=== PATIENT | male | born 1940 | race Two or more races ===

== ENCOUNTER 2017-03-06 14:41 | Inpatient (IN) | payer MEDICARE, OTHER ==
[~2017-03-06] VITALS: Ht 170.2 cm; Wt 84.5 kg
[~2017-03-06 14:41] MED LIST: ACET500C26 PO; ASP81EC PO; Furosemide PO; Gabapentin PO; HYDR50TA15; LISI40TA PO; LOPE-27 PO; MONT10TA34 PO; OYST500T48 OR; POTA10TA51 PO; SERT-138 PO; SIMV-8 PO; SITA100T7 PO
[2017-03-06] MEDS ORDERED: ASPirin 81 mg TAB PO ONE (15:00)
[2017-03-06] MEDS ORDERED: ONDANSETRON HCL 4 MG/2 ML VIAL IV ONE (15:00)
[2017-03-06] MEDS ORDERED: MORPHINE SULF INJ 2 MG/ML SYRINGE 1ML IV PRN ×3 (15:00→18:30)
[2017-03-06 15:18] LABS: Basophils # (auto) 0 uL; Basophils % (auto) 0.3 % (0.0-2.0); Eosinophils # (auto) 0 uL; Eosinophils % (auto) 0.5 % (0.0-7.0); Hematocrit 40.2 % (41.0-53.0); Hemoglobin 13.2 g/dL (13.5-17.5); Lymphocytes # (auto) 0.7 uL; Lymphocytes % (auto) 8.1 % (10.0-50.0); Mean Corpuscular Hemoglobin 30.7 pg (28.0-32.0); Mean Corpuscular Hgb Conc. 32.8 g/dL (32.0-36.0); Mean Corpuscular Volume 93.5 fL (80.0-100.0); Mean Platelet Volume 8.7 fL (6.9-10.8); Monocytes # (auto) 0.2 uL; Monocytes % (auto) 2.8 % (0.0-12.0); Neutrophils # (auto) 7.3 uL; Neutrophils % (auto) 88.3 % (37.0-80.0); Platelet Count (auto) 218 10^3/uL (140-450); Red Cell Distribution Width 13.8 % (11.8-14.3); White Blood Cell 8.3 10^3/uL (4.4-10.8)
[2017-03-06 15:37] LABS: INR 1.05 (0.9-1.15); Partial Thromboplastin Time 26.5 sec (22.64-33.71); Prothrombin Time 11.4 sec (9.37-12.3)
[2017-03-06 15:45] LABS: Albumin 3.8 g/dL (3.4-5.0); Alkaline Phosphatase 114 U/L (45-117); Anion Gap 9 (5-15); Aspartate Aminotransferase 11 U/L (15-37); BUN/Creatinine Ratio 15.1; Bilirubin, Total 0.5 mg/dL (0.2-1.0); Blood Urea Nitrogen 14 mg/dL (7-18); Calcium 9.5 mg/dL (8.5-10.1); Carbon Dioxide 27 mmol/L (21-32); Chloride 107 mmol/L (98-107); GFR African American 102 mL/min; GFR Non-African American 84 mL/min; Glucose 181 mg/dL (74-106); Potassium 3.9 mmol/L (3.5-5.1); Sodium 143 mmol/L (136-145); Total Protein 8.1 g/dL (6.4-8.2)
[2017-03-06 15:46] LABS: B-Type Natriuretic Peptide 302.69 pg/mL (0-100)
[2017-03-06 15:48] LABS: Temperature: 22.8 C (20.0-25.0)
[2017-03-06] MEDS ORDERED: GABA-339 PO (15:48)
[2017-03-06] MEDS ORDERED: CLON0.1T14 PO (15:48)
[2017-03-06] MEDS ORDERED: OXY5T PO (15:48)
[2017-03-06] MEDS ORDERED: PRO10T PO (15:48)
[2017-03-06] MEDS ORDERED: DONE10TA17 PO (15:48)
[2017-03-06] MEDS ORDERED: TAM04C PO (15:49)
[2017-03-06] MEDS ORDERED: OMEP20CA74 PO (15:50)
[2017-03-06] MEDS ORDERED: METO-158 PO (15:50)
[2017-03-06] MEDS ORDERED: PROMETHAZINE HCL 25 MG/ML 1ML ONE (16:06)
[2017-03-06] MEDS ORDERED: PROMETHAZINE HCL 25 MG/ML 1ML IV ONE (16:15)
[2017-03-06 17:04] LABS: Urine Bilirubin Negative (Negative); Urine Blood Negative /uL (Negative); Urine Color Yellow (Yellow); Urine Glucose Normal (Normal); Urine Ketone TRACE (Negative); Urine Mucus FEW (None Seen); Urine Nitrite Negative (Negative); Urine RBC 1 /hpf (0 - 3); Urine Squamous Epithelial Cell FEW /hpf (<5); Urine pH 7.5 (5.0-8.0)
[2017-03-06] MEDS ORDERED: FUROSEMIDE 40 MG/4 ML VIAL IV ONE (17:15)
[2017-03-06] MEDS ORDERED: SODIUM CHLORIDE 0.9% 1,000 ML IV SCH (18:20)
[2017-03-06] MEDS ORDERED: cloNIDine HCL 0.1 MG TAB PO PRN (18:30)
[2017-03-06] MEDS ORDERED: ONDANSETRON HCL 4 MG/2 ML VIAL IV PRN (18:30)
[2017-03-06] MEDS ORDERED: NITROGLYCERIN 0.4 MG SL TAB SL PRN (18:30)
[2017-03-06] MEDS ORDERED: DEXTROSE (50%) 50ML SYRG IV PRN (18:30)
[2017-03-06] MEDS ORDERED: LOPERAMIDE HCL 2 MG CAP PO PRN (18:30)
[2017-03-06] MEDS ORDERED: TEMAZEPAM 15 MG CAP PO PRN (18:30)
[2017-03-06] MEDS ORDERED: ACETAMINOPHEN 325 MG TAB PO PRN (18:30)
[2017-03-06] MEDS ORDERED: DOCUSATE SOD 100 MG CAP PO PRN (18:30)
[2017-03-06] MEDS ORDERED: cefTRIAXone 1GM/50ML D5W 50 ML IV ONE (18:30)
[2017-03-06] MEDS ORDERED: oxyCODONE ER 10 MG TAB PO PRN (18:45)
[2017-03-06 20:30] VITALS: BP 176/111
[2017-03-06] MEDS: HYDROcodone-ACET 5/325MG TAB PO PRN (20:44)
[2017-03-06 22:00] VITALS: BP 122/61
[2017-03-06] MEDS ORDERED: MONTELUKAST SODIUM 10 MG TAB PO SCH (22:00)
[2017-03-06] MEDS: ACCU-CHEK COMFORT CURVE STRIP VI SCH (22:00)
[2017-03-06] MEDS ORDERED: ATORVASTATIN 20 MG TAB PO SCH (22:00)
[2017-03-06] MEDS ORDERED: DONEPEZIL HYDROCHLORIDE 5 MG TAB PO SCH (22:00)
[2017-03-06] MEDS ORDERED: SERTRALINE HCL 50 MG TAB PO SCH (22:00)
[2017-03-06] MEDS: InsuLIN REG 1unit/0.01ml Soln (100units/ml) SC SCH (22:43)
[2017-03-06] MEDS: GABAPENTIN 300 MG CAP PO SCH (22:44)
[2017-03-06] MEDS: CALCIUM CARB 500 MG CHEW TAB PO SCH (22:44)
[2017-03-06] MEDS: ALLOPURINOL 100 MG TAB PO SCH (22:45)
[2017-03-06] MEDS: FAMOTIDINE 20 MG TAB PO SCH (22:46)
[2017-03-06] MEDS: METOPROLOL TARTRATE 25 MG TAB PO SCH (22:47)
[2017-03-07 05:00] VITALS: BP 130/58
[2017-03-07 06:09] LABS: Basophils # (auto) 0 uL; Basophils % (auto) 0.2 % (0.0-2.0); Eosinophils # (auto) 0 uL; Hematocrit 37.3 % (41.0-53.0); Hemoglobin 12.4 g/dL (13.5-17.5); Lymphocytes # (auto) 1.4 uL; Mean Corpuscular Hemoglobin 30.8 pg (28.0-32.0); Mean Corpuscular Hgb Conc. 33.1 g/dL (32.0-36.0); Mean Corpuscular Volume 92.9 fL (80.0-100.0); Mean Platelet Volume 8.7 fL (6.9-10.8); Monocytes # (auto) 0.9 uL; Monocytes % (auto) 9.6 % (0.0-12.0); Neutrophils # (auto) 7.4 uL; Neutrophils % (auto) 76.2 % (37.0-80.0); Nucleated Red Blood Cells % 0.1 %; Platelet Count (auto) 205 10^3/uL (140-450); Red Cell Distribution Width 14.2 % (11.8-14.3); White Blood Cell 9.7 10^3/uL (4.4-10.8)
[2017-03-07 06:43] LABS: Albumin 3.5 g/dL (3.4-5.0); BUN/Creatinine Ratio 15.9; Bilirubin, Total 0.5 mg/dL (0.2-1.0); Calcium 9.2 mg/dL (8.5-10.1); Potassium 3.4 mmol/L (3.5-5.1); Total Protein 7.5 g/dL (6.4-8.2)
[2017-03-07] MEDS: GABAPENTIN 300 MG CAP PO SCH ×2 (06:47→14:00)
[2017-03-07] MEDS: ACCU-CHEK COMFORT CURVE STRIP VI SCH ×2 (06:48→11:32)
[2017-03-07] MEDS: InsuLIN REG 1unit/0.01ml Soln (100units/ml) SC SCH ×2 (06:48→11:30)
[2017-03-07] MEDS: HYDROcodone-ACET 5/325MG TAB PO PRN (06:58)
[2017-03-07 08:00] VITALS: BP 151/71
[2017-03-07 09:00] VITALS: BP 151/71
[2017-03-07] MEDS ORDERED: cefTRIAXone 1GM/50ML D5W 50 ML IV SCH (09:00)
[2017-03-07] MEDS ORDERED: PNEUMOCOCCAL VACC POLYS 25 MCG/0.5 ML VIAL IM ONE (10:00)
[2017-03-07] MEDS ORDERED: ASPirin-EC 81 mg tab PO SCH (10:00)
[2017-03-07] MEDS ORDERED: FUROSEMIDE 40 MG TAB PO SCH (10:00)
[2017-03-07] MEDS ORDERED: NITROGLYCERIN 0.4 MG SL TAB SL ONE (10:00)
[2017-03-07] MEDS ORDERED: JANUVIA 25 MG PO SCH (10:00)
[2017-03-07] MEDS ORDERED: LISINOPRIL 20 MG TAB PO SCH (10:00)
[2017-03-07] MEDS ORDERED: MULTIPLE VITAMIN TAB PO SCH (10:00)
[2017-03-07] MEDS ORDERED: POTASSIUM CHL 10 Meq TABLET PO SCH (10:00)
[2017-03-07] MEDS ORDERED: PNEUMOCOCCAL VACC POLYS 25 MCG/0.5 ML VIAL IM SCH (10:00)
[2017-03-07] MEDS ORDERED: PANTOPRAZOLE 40 MG TAB PO SCH (10:00)
[2017-03-07] MEDS: METOPROLOL TARTRATE 25 MG TAB PO SCH (10:20)
[2017-03-07] MEDS: FAMOTIDINE 20 MG TAB PO SCH (10:32)
[2017-03-07] MEDS: CALCIUM CARB 500 MG CHEW TAB PO SCH (10:33)
[2017-03-07] MEDS: ALLOPURINOL 100 MG TAB PO SCH (10:34)
[2017-03-07] MEDS ORDERED: LEVO500T21 PO (11:33)
[2017-03-07] MEDS ORDERED: ALBUAER3 IN (11:33)
[2017-03-07 13:00] VITALS: BP 149/57
[2017-03-07] MEDS ORDERED: TAMSULOSIN HYDROCHLORIDE 0.4 MG CAP PO SCH (18:00)
[2017-03-07] MEDS ORDERED: DOXYCYCLINE 100 MG TAB/CAP PO SCH (22:00)
== END 2017-03-07 17:10 | disposition home health service (06) | DRG 202 ==
LOC: ER 14:41 → EDBD 14:41 → TELE 14:42 → TELE-CENTR 20:25
PROVIDERS: ADMIT Internal Medicine; ATTEND Internal Medicine
DX: J20.9 Acute bronchitis, unspecified (principal); I42.9 Cardiomyopathy, unspecified; E11.21 Type 2 diabetes mellitus with diabetic nephropathy; I48.0 Paroxysmal atrial fibrillation; E11.22 Type 2 diabetes mellitus with diabetic chronic kidney disease; I48.92 Unspecified atrial flutter; I50.42 Chronic combined systolic (congestive) and diastolic (congestive) heart failure; I13.0 Hypertensive heart and chronic kidney disease with heart failure and stage 1 through stage 4 chronic kidney disease, or unspecified chronic kidney disease; J44.0 Chronic obstructive pulmonary disease with (acute) lower respiratory infection; J45.901 Unspecified asthma with (acute) exacerbation; N40.0 Benign prostatic hyperplasia without lower urinary tract symptoms; D63.8 Anemia in other chronic diseases classified elsewhere; E78.5 Hyperlipidemia, unspecified; F32.9 Major depressive disorder, single episode, unspecified; I70.0 Atherosclerosis of aorta; K21.9 Gastro-esophageal reflux disease without esophagitis; M48.061 Spinal stenosis, lumbar region without neurogenic claudication; N18.2 Chronic kidney disease, stage 2 (mild); Z83.3 Family history of diabetes mellitus; Z86.73 Personal history of transient ischemic attack (TIA), and cerebral infarction without residual deficits; Z79.899 Other long term (current) drug therapy; Z95.810 Presence of automatic (implantable) cardiac defibrillator; Z23 Encounter for immunization
CPT/HCPCS: 36415; 71010; 74176; 80053; 81001; 82962; 83036; 83880; 84443; 84484; 85025; 85610; 85730; 87086; 87088; 87186; 96361; 96365; 96375; J0696; J1815; J2405

== ENCOUNTER 2017-07-04 16:52 | Inpatient (IN) | payer MEDICARE, OTHER ==
[~2017-07-04] VITALS: Ht 167.6 cm; Wt 58.4 kg
[~2017-07-04 16:52] MED LIST changes: -ACET500C26 PO; +ALBUAER3 IN; +BACL20TA; +CLON0.1T PO; +CLON0.1T14 PO; +DILT240C10; +DONE10TA17 PO; +FURO20TA3; +GABA-339 PO; -Gabapentin PO; +HYDR-2598; +LEVO500T21 PO; +METO-158; +METO-158 PO; +OMEP20CA74 PO; +OMEP20TA44; +OXY5T PO; +PRO10T PO; +SERT-274; +SIMV10TA84; +SPIR50TA23; +TAM04C PO; +TAMS0.4C36
[2017-07-04] MEDS ORDERED: hydrALAZINE HCL 20 MG/ML VL IV ONE (18:00)
[2017-07-04] MEDS ORDERED: ONDANSETRON HCL 4 MG/2 ML VIAL IV ONE (18:15)
[2017-07-04 18:31] LABS: Basophils # (auto) 0 uL; Basophils % (auto) 0.1 % (0.0-2.0); Eosinophils # (auto) 0 uL; Hematocrit 42.7 % (41.0-53.0); Hemoglobin 13.9 g/dL (13.5-17.5); Lymphocytes # (auto) 0.7 uL; Lymphocytes % (auto) 9.2 % (10.0-50.0); Mean Corpuscular Hemoglobin 29.7 pg (28.0-32.0); Mean Corpuscular Hgb Conc. 32.5 g/dL (32.0-36.0); Mean Corpuscular Volume 91.6 fL (80.0-100.0); Monocytes # (auto) 0.3 uL; Monocytes % (auto) 3.3 % (0.0-12.0); Neutrophils % (auto) 87.4 % (37.0-80.0); Nucleated Red Blood Cells % 0.1 %; Platelet Count (auto) 241 10^3/uL (140-450); Red Blood Cells 4.66 10^6/uL (4.5-5.90); Red Cell Distribution Width 14.4 % (11.8-14.3)
[2017-07-04 18:40] LABS: Alanine Aminotransferase 21 U/L (16-61); Albumin 3.9 g/dL (3.4-5.0); Anion Gap 7 (5-15); Aspartate Aminotransferase 15 U/L (15-37); BUN/Creatinine Ratio 16.2; Blood Urea Nitrogen 17 mg/dL (7-18); Calcium 9.4 mg/dL (8.5-10.1); Carbon Dioxide 25 mmol/L (21-32); Chloride 112 mmol/L (98-107); GFR African American 88 mL/min; GFR Non-African American 73 mL/min; Glucose 161 mg/dL (74-106); Potassium 3.3 mmol/L (3.5-5.1); Sodium 144 mmol/L (136-145)
[2017-07-04 18:45] LABS: Alkaline Phosphatase 105 U/L (45-117); Bilirubin, Total 0.5 mg/dL (0.2-1.0); Total Protein 7.6 g/dL (6.4-8.2)
[2017-07-04 18:46] LABS: Urine Bacteria NONE SEEN /hpf (None Seen); Urine Blood 1+ /uL (Negative); Urine Mucus FEW (None Seen); Urine Specific Gravity 1.032 (1.001-1.035); Urine WBC 2 /hpf (0 - 3)
[2017-07-04] MEDS ORDERED: MORPHINE SULFATE 4 MG/ML SYR/VIAL IV ONE (20:45)
[2017-07-04] MEDS ORDERED: ALBUTEROL SULF 2.5 MG/0.5ML(0.5%) NEB SOLN NEB PRN (21:45)
[2017-07-04] MEDS ORDERED: ACETAMINOPHEN 500 MG TAB PO PRN (21:45)
[2017-07-04] MEDS ORDERED: ONDANSETRON HCL 4 MG/2 ML VIAL IV PRN (21:45)
[2017-07-04] MEDS: cloNIDine HCL 0.1 MG TAB PO SCH (22:00)
[2017-07-04] MEDS: DONEPEZIL HYDROCHLORIDE 5 MG TAB PO SCH (22:15)
[2017-07-04] MEDS: GABAPENTIN 300 MG CAP PO SCH (22:15)
[2017-07-04] MEDS ORDERED: cloNIDine HCL 0.1 MG TAB PO ONE (22:15)
[2017-07-04 22:30] VITALS: BP 181/88
[2017-07-04] MEDS: MORPHINE SULFATE 4 MG/ML SYR/VIAL IV PRN (23:15)
[2017-07-04] MEDS ORDERED: DEXTROSE (50%) 50ML SYRG IV PRN (23:15)
[2017-07-04] MEDS ORDERED: POTASSIUM CHL 20 Meq TABLET PO ONE (23:15)
[2017-07-04] MEDS ORDERED: metroNIDAZOLE 500MG/100ML 100 ML IV ONE (23:30)
[2017-07-05] VITALS (7 sets, daily range): BP systolic 115–181; BP diastolic 52–88
[2017-07-05] MEDS: HYDROcodone-ACET 5/325MG TAB PO PRN ×2 (04:02→18:14)
[2017-07-05 05:39] LABS: Basophils # (auto) 0 uL; Basophils % (auto) 0.2 % (0.0-2.0); Eosinophils # (auto) 0 uL; Eosinophils % (auto) 0.1 % (0.0-7.0); Hematocrit 37.3 % (41.0-53.0); Hemoglobin 12.2 g/dL (13.5-17.5); Lymphocytes # (auto) 1.7 uL; Lymphocytes % (auto) 20.3 % (10.0-50.0); Mean Corpuscular Hgb Conc. 32.8 g/dL (32.0-36.0); Mean Corpuscular Volume 91.5 fL (80.0-100.0); Monocytes # (auto) 0.7 uL; Monocytes % (auto) 8.6 % (0.0-12.0); Neutrophils # (auto) 5.8 uL; Neutrophils % (auto) 70.8 % (37.0-80.0); Platelet Count (auto) 201 10^3/uL (140-450); Red Blood Cells 4.08 10^6/uL (4.5-5.90); Red Cell Distribution Width 14.8 % (11.8-14.3); White Blood Cell 8.1 10^3/uL (4.4-10.8)
[2017-07-05 05:51] LABS: BUN/Creatinine Ratio 20.4; Calcium 8.7 mg/dL (8.5-10.1); Potassium 3.5 mmol/L (3.5-5.1)
[2017-07-05] MEDS: MORPHINE SULFATE 4 MG/ML SYR/VIAL IV PRN ×2 (05:55→22:07)
[2017-07-05] MEDS: cloNIDine HCL 0.1 MG TAB PO SCH ×2 (05:58→14:00)
[2017-07-05] MEDS: ACCU-CHEK COMFORT CURVE STRIP VI SCH ×4 (05:59→21:53)
[2017-07-05] MEDS: GABAPENTIN 300 MG CAP PO SCH ×3 (05:59→21:52)
[2017-07-05] MEDS: InsuLIN REG 1unit/0.01ml Soln (100units/ml) SC SCH ×4 (06:25→21:59)
[2017-07-05] MEDS: LOSARTAN POTASSIUM 50 MG TAB PO SCH (10:07)
[2017-07-05] MEDS: DILTIAZEM HCL 120MG ER CAP PO SCH (10:08)
[2017-07-05] MEDS: ASPirin-EC 81 mg tab PO SCH (10:09)
[2017-07-05] MEDS ORDERED: TAMSULOSIN HYDROCHLORIDE 0.4 MG CAP PO SCH (18:00)
[2017-07-05] MEDS: DONEPEZIL HYDROCHLORIDE 5 MG TAB PO SCH (21:53)
[2017-07-06 05:00] VITALS: BP 128/66
[2017-07-06] MEDS: GABAPENTIN 300 MG CAP PO SCH (05:37)
[2017-07-06] MEDS: MORPHINE SULFATE 4 MG/ML SYR/VIAL IV PRN (05:37)
[2017-07-06] MEDS: ACCU-CHEK COMFORT CURVE STRIP VI SCH ×2 (05:40→11:30)
[2017-07-06] MEDS: InsuLIN REG 1unit/0.01ml Soln (100units/ml) SC SCH ×2 (05:41→11:30)
[2017-07-06 06:09] LABS: Amylase 48 U/L (25-115); Lipase 154 U/L (73-393)
[2017-07-06 08:03] VITALS: BP 170/71
[2017-07-06] MEDS: ASPirin-EC 81 mg tab PO SCH (09:16)
[2017-07-06] MEDS: LOSARTAN POTASSIUM 50 MG TAB PO SCH (09:16)
[2017-07-06] MEDS: HYDROcodone-ACET 5/325MG TAB PO PRN (09:16)
[2017-07-06] MEDS: DILTIAZEM HCL 120MG ER CAP PO SCH (09:17)
[2017-07-06 10:18] VITALS: BP 170/71
[2017-07-06 12:23] VITALS: BP 146/65
[2017-07-07] MEDS ORDERED: cloNIDine HCL 0.1 MG TAB PO SCH (22:00)
== END 2017-07-06 13:35 | disposition home or self-care (01) | DRG 392 ==
LOC: EDBD 16:52 → ER 16:52 → OVERFLOW 16:53 → WEST WING 22:37
PROVIDERS: ADMIT Nurse Practitioner Family; ATTEND Hospitalist
DX: K52.9 Noninfective gastroenteritis and colitis, unspecified (principal); E11.40 Type 2 diabetes mellitus with diabetic neuropathy, unspecified; I11.0 Hypertensive heart disease with heart failure; I50.9 Heart failure, unspecified; E78.5 Hyperlipidemia, unspecified; E87.6 Hypokalemia; K21.9 Gastro-esophageal reflux disease without esophagitis; N40.0 Benign prostatic hyperplasia without lower urinary tract symptoms; Z95.0 Presence of cardiac pacemaker; Z86.73 Personal history of transient ischemic attack (TIA), and cerebral infarction without residual deficits; Z79.899 Other long term (current) drug therapy; Z83.3 Family history of diabetes mellitus
CPT/HCPCS: 36415; 74176; 80048; 80053; 81001; 82150; 82962; 83690; 84484; 85025; 87045; 87493; 87899; 93005; 96365; 96375; J2405; J3490

== ENCOUNTER 2017-11-14 14:24 | Inpatient (IN) | payer OTHER ==
[~2017-11-14] VITALS: Ht 365.8 cm; Wt 833.2 kg
[~2017-11-14 14:24] MED LIST changes: -ALBUAER3 IN; -Furosemide PO; -HYDR50TA15; -LEVO500T21 PO; -LOPE-27 PO; -MONT10TA34 PO; -OXY5T PO; -OYST500T48 OR; -SPIR50TA23; +SPIR50TA5; -TAM04C PO
[2017-11-14] MEDS ORDERED: SODIUM CHLORIDE 0.9% 1,000 ML IV ONE (15:09)
[2017-11-14] MEDS ORDERED: MORPHINE SULF INJ 2 MG/ML SYRINGE 1ML IV ONE (15:15)
[2017-11-14] MEDS ORDERED: ONDANSETRON HCL 4 MG/2 ML VIAL IV ONE (15:15)
[2017-11-14 15:41] LABS: Urine Bacteria NONE SEEN /hpf (None Seen); Urine Blood Negative /uL (Negative); Urine Specific Gravity 1.017 (1.001-1.035); Urine WBC <1 /hpf (0 - 3)
[2017-11-14 15:54] LABS: Basophils # (auto) 0 uL; Basophils % (auto) 0.3 % (0.0-2.0); Eosinophils # (auto) 0 uL; Eosinophils % (auto) 0.4 % (0.0-7.0); Hematocrit 37.9 % (41.0-53.0); Hemoglobin 12.7 g/dL (13.5-17.5); Lymphocytes # (auto) 0.6 uL; Mean Corpuscular Hemoglobin 30.8 pg (28.0-32.0); Mean Corpuscular Hgb Conc. 33.7 g/dL (32.0-36.0); Mean Corpuscular Volume 91.4 fL (80.0-100.0); Monocytes # (auto) 0.3 uL; Monocytes % (auto) 3.9 % (0.0-12.0); Neutrophils # (auto) 6.2 uL; Neutrophils % (auto) 86.4 % (37.0-80.0); Nucleated Red Blood Cells % 0.1 %; Platelet Count (auto) 188 10^3/uL (140-450); Red Blood Cells 4.14 10^6/uL (4.5-5.90); Red Cell Distribution Width 14.2 % (11.8-14.3); White Blood Cell 7.2 10^3/uL (4.4-10.8)
[2017-11-14 16:09] LABS: Albumin 3.3 g/dL (3.4-5.0); BUN/Creatinine Ratio 14.5; Calcium 9.4 mg/dL (8.5-10.1); Magnesium 1.9 mg/dL (1.6-2.6); Potassium 3.5 mmol/L (3.5-5.1)
[2017-11-14 16:11] LABS: Bilirubin, Total 0.6 mg/dL (0.2-1.0); Total Protein 7.2 g/dL (6.4-8.2)
[2017-11-14] MEDS: SODIUM CHLORIDE 0.9% 1,000 ML IV SCH (19:36)
[2017-11-14] MEDS ORDERED: cefTRIAXone 1GM/10ml IVPUSH 10 ML IV ONE (19:45)
[2017-11-14] MEDS ORDERED: ACETAMINOPHEN 325 MG TAB PO PRN (19:45)
[2017-11-14] MEDS ORDERED: ONDANSETRON HCL 4 MG/2 ML VIAL IV PRN (19:45)
[2017-11-14] MEDS ORDERED: HYDROcodone-ACET 5/325MG TAB PO PRN (19:45)
[2017-11-14] MEDS ORDERED: PANTOPRAZOLE 40 MG TAB PO ONE (19:45)
[2017-11-14] MEDS ORDERED: DEXTROSE (50%) 50ML SYRG IV PRN (19:45)
[2017-11-14] MEDS ORDERED: TEMAZEPAM 15 MG CAP PO PRN (19:45)
[2017-11-14] MEDS ORDERED: TAMSULOSIN HYDROCHLORIDE 0.4 MG CAP PO ONE (20:15)
[2017-11-14 22:00] VITALS: BP 185/81
[2017-11-14] MEDS ORDERED: PRAVASTATIN SODIUM 20 MG TAB PO SCH (22:00)
[2017-11-14] MEDS: GABAPENTIN 300 MG CAP PO SCH (22:39)
[2017-11-14] MEDS: cloNIDine HCL 0.1 MG TAB PO SCH (22:40)
[2017-11-14] MEDS: metroNIDAZOLE 500MG/100ML 100 ML IV SCH (22:40)
[2017-11-15] MEDS ORDERED: MORPHINE SULF INJ 2 MG/ML SYRINGE 1ML IV PRN (00:30)
[2017-11-15] MEDS ORDERED: PNEUMOCOCCAL VACC POLYS 25 MCG/0.5 ML VIAL IM ONE (02:45)
[2017-11-15 05:07] VITALS: BP 158/70
[2017-11-15] MEDS: ACCU-CHEK COMFORT CURVE STRIP VI SCH ×4 (05:53→16:41)
[2017-11-15] MEDS: InsuLIN REG 1unit/0.01ml Soln (100units/ml) SC SCH ×4 (05:53→16:41)
[2017-11-15] MEDS: metroNIDAZOLE 500MG/100ML 100 ML IV SCH ×2 (06:00→16:23)
[2017-11-15] MEDS: GABAPENTIN 300 MG CAP PO SCH ×2 (06:29→16:24)
[2017-11-15] MEDS: cloNIDine HCL 0.1 MG TAB PO SCH ×2 (06:29→16:29)
[2017-11-15 07:05] LABS: Basophils # (auto) 0 uL; Basophils % (auto) 0.5 % (0.0-2.0); Eosinophils # (auto) 0.1 uL; Eosinophils % (auto) 1.3 % (0.0-7.0); Hematocrit 34.9 % (41.0-53.0); Hemoglobin 11.9 g/dL (13.5-17.5); Lymphocytes # (auto) 1.6 uL; Lymphocytes % (auto) 24.5 % (10.0-50.0); Mean Corpuscular Hemoglobin 31.3 pg (28.0-32.0); Mean Corpuscular Hgb Conc. 34.2 g/dL (32.0-36.0); Mean Corpuscular Volume 91.5 fL (80.0-100.0); Monocytes # (auto) 0.7 uL; Monocytes % (auto) 9.9 % (0.0-12.0); Neutrophils # (auto) 4.2 uL; Neutrophils % (auto) 63.8 % (37.0-80.0); Platelet Count (auto) 170 10^3/uL (140-450); Red Blood Cells 3.81 10^6/uL (4.5-5.90); White Blood Cell 6.6 10^3/uL (4.4-10.8)
[2017-11-15 07:22] LABS: BUN/Creatinine Ratio 11.5; Bilirubin, Total 0.5 mg/dL (0.2-1.0); Calcium 8.4 mg/dL (8.5-10.1); Potassium 3.1 mmol/L (3.5-5.1); Total Protein 6.4 g/dL (6.4-8.2)
[2017-11-15 08:00] VITALS: BP 138/59
[2017-11-15 08:57] VITALS: BP 138/59
[2017-11-15] MEDS ORDERED: cefTRIAXone 1GM/10ml IVPUSH 10 ML IV SCH (09:00)
[2017-11-15] MEDS ORDERED: SPIRONOLACTONE 25 MG TAB PO SCH (10:00)
[2017-11-15] MEDS ORDERED: ENOXAPARIN SOD 40 MG/0.4 ML SYRINGE SC SCH (10:00)
[2017-11-15] MEDS ORDERED: SERTRALINE HCL 50 MG TAB PO SCH (10:00)
[2017-11-15] MEDS ORDERED: METOPROLOL SUCCINATE XL 50 MG TAB PO SCH (10:00)
[2017-11-15] MEDS ORDERED: DILTIAZEM HCL 120MG ER CAP PO SCH (10:00)
[2017-11-15] MEDS ORDERED: PANTOPRAZOLE 40 MG TAB PO SCH (10:00)
[2017-11-15] MEDS ORDERED: LISINOPRIL 20 MG TAB PO SCH (10:00)
[2017-11-15] MEDS: SODIUM CHLORIDE 0.9% 1,000 ML IV SCH (11:44)
[2017-11-15] MEDS: POTASSIUM CHL 20 Meq TABLET PO SCH ×2 (11:45→16:35)
[2017-11-15 11:56] LABS: Lactic Acid w/Reflex 2.3 mmol/L (0.4-2.0)
[2017-11-15] MEDS ORDERED: SODIUM CHLORIDE 0.9% 1,000 ML IV ONE (12:15)
[2017-11-15] MEDS ORDERED: LEVO500T21 PO (12:23)
[2017-11-15] MEDS ORDERED: METR500T PO (12:23)
[2017-11-15 13:00] VITALS: BP 120/57
[2017-11-15 15:20] VITALS: BP 138/59
[2017-11-15] MEDS ORDERED: POTASSIUM CHL 20 Meq TABLET PO SCH (16:30)
[2017-11-15 17:12] VITALS: BP 125/57
[2017-11-15] MEDS ORDERED: TAMSULOSIN HYDROCHLORIDE 0.4 MG CAP PO SCH (18:00)
== END 2017-11-15 18:30 | disposition home health service (06) | DRG 392 ==
LOC: EDBD 14:24 → ER 14:24 → OVERFLOW 14:25 → WEST WING 21:32
PROVIDERS: ADMIT Nurse Practitioner; ATTEND Internal Medicine
DX: K21.9 Gastro-esophageal reflux disease without esophagitis (principal); E44.1 Mild protein-calorie malnutrition; E86.0 Dehydration; I11.0 Hypertensive heart disease with heart failure; E78.5 Hyperlipidemia, unspecified; E11.40 Type 2 diabetes mellitus with diabetic neuropathy, unspecified; N40.0 Benign prostatic hyperplasia without lower urinary tract symptoms; F03.90 Unspecified dementia, unspecified severity, without behavioral disturbance, psychotic disturbance, mood disturbance, and anxiety; F32.9 Major depressive disorder, single episode, unspecified; I50.9 Heart failure, unspecified; Z83.3 Family history of diabetes mellitus; Z86.73 Personal history of transient ischemic attack (TIA), and cerebral infarction without residual deficits; Z95.0 Presence of cardiac pacemaker
CPT/HCPCS: 36415; 74176; 80053; 81001; 82150; 82962; 83605; 83690; 83735; 85025; 93005; 94761; 96361; 96374; 96375; A6257; J0696; J1815; J2405; J3490

== ENCOUNTER 2017-12-09 02:48 | Observation (INO) | payer OTHER ==
[~2017-12-09] VITALS: Ht 177.8 cm; Wt 99.8 kg
[~2017-12-09 02:48] MED LIST changes: -CLON0.1T PO; +LEVO500T21 PO; -METO-158; +METR500T PO; -OMEP20CA74 PO; -SERT-138 PO; -SIMV10TA84
[2017-12-09 04:49] LABS: Basophils # (auto) 0 uL; Basophils % (auto) 0.2 % (0.0-2.0); Eosinophils # (auto) 0 uL; Eosinophils % (auto) 0.1 % (0.0-7.0); Hematocrit 38.5 % (41.0-53.0); Hemoglobin 12.7 g/dL (13.5-17.5); Lymphocytes # (auto) 0.6 uL; Lymphocytes % (auto) 4.9 % (10.0-50.0); Mean Corpuscular Hemoglobin 30.3 pg (28.0-32.0); Mean Corpuscular Volume 91.8 fL (80.0-100.0); Monocytes # (auto) 0.7 uL; Monocytes % (auto) 5.5 % (0.0-12.0); Neutrophils # (auto) 10.6 uL; Neutrophils % (auto) 89.3 % (37.0-80.0); Nucleated Red Blood Cells % 0.1 %; Platelet Count (auto) 158 10^3/uL (140-450); Red Blood Cells 4.19 10^6/uL (4.5-5.90); Red Cell Distribution Width 13.9 % (11.8-14.3); White Blood Cell 11.8 10^3/uL (4.4-10.8)
[2017-12-09 05:04] LABS: Blood Alcohol < 3.0 mg/dL (0-5); Magnesium 1.7 mg/dL (1.6-2.6)
[2017-12-09 05:05] LABS: Partial Thromboplastin Time 29.3 sec (23.78-33.04); Prothrombin Time 10.7 sec (9.27-12.13)
[2017-12-09 05:09] LABS: Lactic Acid w/Reflex 2.2 mmol/L (0.4-2.0)
[2017-12-09 05:11] LABS: Alanine Aminotransferase 36 U/L (16-61); Albumin 3.3 g/dL (3.4-5.0); Alkaline Phosphatase 124 U/L (45-117); Anion Gap 7 (5-15); Aspartate Aminotransferase 16 U/L (15-37); Bilirubin, Total 0.5 mg/dL (0.2-1.0); Blood Urea Nitrogen 34 mg/dL (7-18); Calcium 8.1 mg/dL (8.5-10.1); Carbon Dioxide 28 mmol/L (21-32); Chloride 101 mmol/L (98-107); GFR African American 48 mL/min; GFR Non-African American 39 mL/min; Glucose 162 mg/dL (74-106); Potassium 3.7 mmol/L (3.5-5.1); Sodium 136 mmol/L (136-145); Total Protein 7.2 g/dL (6.4-8.2)
[2017-12-09 07:24] LABS: Urine Bacteria MOD /hpf (None Seen); Urine Blood TRACE /uL (Negative); Urine Hyaline Cast FEW /lpf (0 - 2); Urine Mucus FEW (None Seen); Urine Specific Gravity 1.018 (1.001-1.035); Urine WBC 21 /hpf (0 - 3)
[2017-12-09 08:00] LABS: Alcohol, Urine < 3.0 mg/dL (0-5); Amphetamine Screen, Urine NEGATIVE (NEGATIVE); Barbiturate Scree,Urine NEGATIVE (NEGATIVE); Benzodiazephine Screen, Urine NEGATIVE (NEGATIVE); Cannabinoid Screen, Urine NEGATIVE (NEGATIVE); Cocaine Screen, Urine NEGATIVE (NEGATIVE); Opiate Scree,Urine POSITIVE (NEGATIVE); Phencyclidine Screen, Urine NEGATIVE (NEGATIVE)
[2017-12-09 11:30] VITALS: BP 150/80
[2017-12-09] MEDS ORDERED: cefTRIAXone 1GM/10ml IVPUSH 10 ML IV ONE (12:00)
[2017-12-09] MEDS ORDERED: KETOROLAC TROMETH 30 MG/ML 1ML VIAL IV ONE (12:00)
== END 2017-12-09 13:37 | disposition home or self-care (01) | DRG 947 ==
LOC: ER 02:48 → EDBD 02:48 → OVERFLOW 02:49 → ER 13:37
PROVIDERS: ADMIT Emergency Medicine; ATTEND Emergency Medicine
DX: R41.82 Altered mental status, unspecified (principal); G92 Toxic encephalopathy; N39.0 Urinary tract infection, site not specified; R56.9 Unspecified convulsions; T40.601A Poisoning by unspecified narcotics, accidental (unintentional), initial encounter; E11.21 Type 2 diabetes mellitus with diabetic nephropathy; I11.0 Hypertensive heart disease with heart failure; I50.9 Heart failure, unspecified; K21.9 Gastro-esophageal reflux disease without esophagitis; R79.1 Abnormal coagulation profile; Z86.73 Personal history of transient ischemic attack (TIA), and cerebral infarction without residual deficits; Y92.89 Other specified places as the place of occurrence of the external cause
CPT/HCPCS: 36415; 70450; 71045; 72128; 72131; 80053; 80307; 80320; 81001; 83605; 83735; 83880; 84484; 85025; 85379; 85610; 85730; 93005; 96374; 96375; 99285; G0378; J0696; J1885

== ENCOUNTER 2018-01-17 05:00 | Inpatient (IN) | payer OTHER ==
[~2018-01-17] VITALS: Ht 167.6 cm; Wt 90.8 kg
[~2018-01-17 05:00] MED LIST changes: -BACL20TA; +BACL20TA PO; -FURO20TA3; +FURO20TA3 PO; -HYDR-2598; +HYDR-2598 PO
[2018-01-17] MEDS ORDERED: IPRATROPIUM BROM 0.5 MG/2.5ML INH SOL NEB ONE (05:45)
[2018-01-17] MEDS ORDERED: ALBUTEROL SULF 2.5 MG/0.5ML(0.5%) NEB SOLN NEB ONE (05:45)
[2018-01-17 05:46] LABS: Urine Bacteria NONE SEEN /hpf (None Seen); Urine Blood Negative /uL (Negative); Urine Specific Gravity 1.009 (1.001-1.035); Urine WBC 1 /hpf (0 - 3)
[2018-01-17 05:52] LABS: Basophils # (auto) 0 uL; Basophils % (auto) 0.1 % (0.0-2.0); Eosinophils # (auto) 0 uL; Eosinophils % (auto) 0.1 % (0.0-7.0); Hematocrit 39.7 % (41.0-53.0); Hemoglobin 13.1 g/dL (13.5-17.5); Lymphocytes # (auto) 0.5 uL; Lymphocytes % (auto) 5.6 % (10.0-50.0); Mean Corpuscular Hemoglobin 30.9 pg (28.0-32.0); Mean Corpuscular Hgb Conc. 32.9 g/dL (32.0-36.0); Mean Corpuscular Volume 93.8 fL (80.0-100.0); Monocytes # (auto) 0.5 uL; Monocytes % (auto) 5.5 % (0.0-12.0); Neutrophils # (auto) 8.4 uL; Neutrophils % (auto) 88.7 % (37.0-80.0); Platelet Count (auto) 200 10^3/uL (140-450); Red Blood Cells 4.23 10^6/uL (4.5-5.90); Red Cell Distribution Width 15.2 % (11.8-14.3); White Blood Cell 9.4 10^3/uL (4.4-10.8)
[2018-01-17 06:00] LABS: Alcohol, Urine < 3.0 mg/dL (0-5); Amphetamine Screen, Urine NEGATIVE (NEGATIVE); Barbiturate Scree,Urine NEGATIVE (NEGATIVE); Benzodiazephine Screen, Urine NEGATIVE (NEGATIVE); Cannabinoid Screen, Urine NEGATIVE (NEGATIVE); Cocaine Screen, Urine NEGATIVE (NEGATIVE); Opiate Scree,Urine POSITIVE (NEGATIVE); Phencyclidine Screen, Urine NEGATIVE (NEGATIVE)
[2018-01-17] MEDS ORDERED: methylPREDNISolone SOD SUCC 125 MG/2 ML VL IV ONE (06:00)
[2018-01-17 06:05] LABS: Albumin 3.4 g/dL (3.4-5.0); Anion Gap 8 (5-15); BUN/Creatinine Ratio 25.7; Blood Alcohol < 3.0 mg/dL (0-5); Blood Urea Nitrogen 48 mg/dL (7-18); Calcium 8.9 mg/dL (8.5-10.1); Carbon Dioxide 28 mmol/L (21-32); Chloride 103 mmol/L (98-107); GFR African American 45 mL/min; GFR Non-African American 37 mL/min; Glucose 158 mg/dL (74-106); Potassium 5.1 mmol/L (3.5-5.1); Sodium 139 mmol/L (136-145)
[2018-01-17 06:10] LABS: Alanine Aminotransferase 31 U/L (16-61); Alkaline Phosphatase 152 U/L (45-117); Aspartate Aminotransferase 25 U/L (15-37); Bilirubin, Total 0.4 mg/dL (0.2-1.0); Total Protein 8.2 g/dL (6.4-8.2)
[2018-01-17 06:38] LABS: INR 0.91 (0.9-1.15); Partial Thromboplastin Time 28.6 sec (23.78-33.04); Prothrombin Time 9.8 sec (9.27-12.13)
[2018-01-17] MEDS ORDERED: NALOXONE HCL 1MG/ML 2ML SYRINGE IV ONE (07:30)
[2018-01-17] MEDS ORDERED: SODIUM CHLORIDE 0.9% 1,000 ML IV ONE ×3 (07:45→14:45)
[2018-01-17] MEDS ORDERED: SODIUM CHLORIDE 0.9% 500 ML IVB ONE (07:55)
[2018-01-17 11:35] VITALS: BP 108/44
[2018-01-17 13:23] VITALS: BP 121/60
[2018-01-17] MEDS ORDERED: GABAPENTIN 300 MG CAP PO SCH ×2 (14:00→22:00)
[2018-01-17] MEDS ORDERED: cloNIDine HCL 0.1 MG TAB PO PRN (14:00)
[2018-01-17] MEDS ORDERED: DEXTROSE (50%) 50ML SYRG IV PRN (14:45)
[2018-01-17] MEDS ORDERED: MORPHINE SULFATE 4 MG/ML SYR/VIAL IV PRN (14:45)
[2018-01-17] MEDS ORDERED: NITROGLYCERIN 0.4 MG SL TAB SL PRN (14:45)
[2018-01-17] MEDS ORDERED: SERTRALINE HCL 50 MG TAB PO ONE (15:00)
[2018-01-17] MEDS ORDERED: CLINDAMYCIN 600MG IV 50 ML IV ONE (15:00)
[2018-01-17] MEDS ORDERED: ENOXAPARIN SOD 40 MG/0.4 ML SYRINGE SC ONE (15:00)
[2018-01-17] MEDS ORDERED: cefTRIAXone 1GM/10ml IVPUSH 10 ML IV ONE (15:00)
[2018-01-17] MEDS ORDERED: NITROGLYCERIN 0.2MG/HR TOPICAL PATCH TD ONE (15:00)
[2018-01-17] MEDS ORDERED: ASPirin 81 mg TAB PO ONE (15:00)
[2018-01-17] MEDS ORDERED: CARVEDILOL 3.125 MG TAB PO ONE (15:00)
[2018-01-17] MEDS ORDERED: GABAPENTIN 300 MG CAP PO ONE (15:00)
[2018-01-17 15:50] VITALS: BP 131/53
[2018-01-17] MEDS: ACCU-CHEK COMFORT CURVE STRIP VI SCH ×2 (17:12→22:01)
[2018-01-17] MEDS: InsuLIN REG 1unit/0.01ml Soln (100units/ml) SC SCH ×2 (17:12→22:01)
[2018-01-17 17:51] LABS: Free T4 (Free Thyroxine) 0.84 ng/dL (0.89-1.76)
[2018-01-17 17:52] LABS: Free T3 2.54 pg/mL (2.3-4.2)
[2018-01-17 18:36] VITALS: BP 164/73
[2018-01-17] MEDS: CLINDAMYCIN 600MG IV 50 ML IV SCH (21:46)
[2018-01-17] MEDS: TAMSULOSIN HYDROCHLORIDE 0.4 MG CAP PO SCH (21:46)
[2018-01-17] MEDS: CARVEDILOL 3.125 MG TAB PO SCH (21:46)
[2018-01-17] MEDS: ATORVASTATIN 20 MG TAB PO SCH (21:46)
[2018-01-17] MEDS: DONEPEZIL HYDROCHLORIDE 5 MG TAB PO SCH (21:46)
[2018-01-17] MEDS ORDERED: ATORVASTATIN 20 MG TAB PO SCH (22:00)
[2018-01-17] MEDS ORDERED: InsuLIN REG 1unit/0.01ml Soln (100units/ml) ONE (22:00)
[2018-01-18] MEDS ORDERED: HYDROcodone-ACET 10/325MG TAB PO ONE (03:45)
[2018-01-18 04:12] VITALS: BP 156/70
[2018-01-18 05:06] VITALS: BP 152/72
[2018-01-18] MEDS ORDERED: PNEUMOCOCCAL VACC POLYS 25 MCG/0.5 ML VIAL IM ONE (05:15)
[2018-01-18] MEDS ORDERED: INFLUENZA QUAD 2018-2019 0.5 ML SYRG IM ONE (05:15)
[2018-01-18] MEDS: CLINDAMYCIN 600MG IV 50 ML IV SCH ×3 (05:43→22:03)
[2018-01-18] MEDS: InsuLIN REG 1unit/0.01ml Soln (100units/ml) SC SCH ×4 (05:46→22:03)
[2018-01-18] MEDS: ACCU-CHEK COMFORT CURVE STRIP VI SCH ×4 (05:46→22:03)
[2018-01-18 07:06] LABS: Basophils # (auto) 0 uL; Eosinophils # (auto) 0 uL; Hematocrit 33.3 % (41.0-53.0); Hemoglobin 11.2 g/dL (13.5-17.5); Lymphocytes # (auto) 0.8 uL; Lymphocytes % (auto) 5.7 % (10.0-50.0); Mean Corpuscular Hgb Conc. 33.6 g/dL (32.0-36.0); Mean Corpuscular Volume 92.5 fL (80.0-100.0); Monocytes # (auto) 0.9 uL; Monocytes % (auto) 6.1 % (0.0-12.0); Neutrophils # (auto) 12.2 uL; Neutrophils % (auto) 88.2 % (37.0-80.0); Nucleated Red Blood Cells % 0.1 %; Platelet Count (auto) 191 10^3/uL (140-450); Red Blood Cells 3.59 10^6/uL (4.5-5.90); White Blood Cell 13.9 10^3/uL (4.4-10.8)
[2018-01-18 07:22] LABS: Potassium 4.3 mmol/L (3.5-5.1)
[2018-01-18 07:27] LABS: Albumin 2.7 g/dL (3.4-5.0); BUN/Creatinine Ratio 37.3; Calcium 8.6 mg/dL (8.5-10.1)
[2018-01-18 07:32] LABS: Bilirubin, Total 0.4 mg/dL (0.2-1.0); Total Protein 6.6 g/dL (6.4-8.2)
[2018-01-18 09:00] VITALS: BP 140/60
[2018-01-18] MEDS: ENOXAPARIN SOD 40 MG/0.4 ML SYRINGE SC SCH (09:00)
[2018-01-18] MEDS: SERTRALINE HCL 50 MG TAB PO SCH (09:00)
[2018-01-18] MEDS ORDERED: cefTRIAXone 1GM/10ml IVPUSH 10 ML IV SCH (09:00)
[2018-01-18] MEDS: ASPirin-EC 81 mg tab PO SCH (09:00)
[2018-01-18] MEDS: CARVEDILOL 3.125 MG TAB PO SCH ×2 (09:01→22:01)
[2018-01-18] MEDS: GABAPENTIN 300 MG CAP PO SCH ×2 (09:02→22:01)
[2018-01-18] MEDS: NITROGLYCERIN 0.2MG/HR TOPICAL PATCH TD SCH (09:04)
[2018-01-18] MEDS ORDERED: ENALAPRIL MALEATE 2.5 MG TAB PO SCH (10:00)
[2018-01-18] MEDS ORDERED: ASPirin 81 mg TAB PO SCH (10:00)
[2018-01-18] MEDS: (Sitagliptin Phosphate (Januvia) 1 TAB) PO SCH (10:00)
[2018-01-18 13:00] VITALS: BP_SYST 161; BP_SYST 168; BP_DIAS 100; BP_DIAS 72
[2018-01-18 17:00] VITALS: BP 146/65
[2018-01-18] MEDS ORDERED: amLODIPine BESYLATE 5 MG TAB PO ONE (21:15)
[2018-01-18] MEDS ORDERED: ACETAMINOPHEN 325 MG TAB PO PRN (21:30)
[2018-01-18 22:00] VITALS: BP 167/78
[2018-01-18] MEDS: TAMSULOSIN HYDROCHLORIDE 0.4 MG CAP PO SCH (22:01)
[2018-01-18] MEDS: DONEPEZIL HYDROCHLORIDE 5 MG TAB PO SCH (22:02)
[2018-01-18] MEDS: ATORVASTATIN 20 MG TAB PO SCH (22:02)
[2018-01-18] MEDS: HYDROcodone-ACET 5/325MG TAB PO PRN (22:03)
[2018-01-19 05:03] VITALS: BP 164/77
[2018-01-19] MEDS: CLINDAMYCIN 600MG IV 50 ML IV SCH ×2 (06:19→14:24)
[2018-01-19] MEDS: GABAPENTIN 300 MG CAP PO SCH ×2 (06:19→14:24)
[2018-01-19] MEDS: InsuLIN REG 1unit/0.01ml Soln (100units/ml) SC SCH ×3 (06:19→17:00)
[2018-01-19] MEDS: ACCU-CHEK COMFORT CURVE STRIP VI SCH ×3 (06:20→17:00)
[2018-01-19 06:31] LABS: Basophils # (auto) 0 uL; Basophils % (auto) 0.2 % (0.0-2.0); Eosinophils # (auto) 0 uL; Eosinophils % (auto) 0.3 % (0.0-7.0); Hematocrit 34.9 % (41.0-53.0); Hemoglobin 11.4 g/dL (13.5-17.5); Lymphocytes # (auto) 1.3 uL; Lymphocytes % (auto) 12.8 % (10.0-50.0); Mean Corpuscular Hemoglobin 30.4 pg (28.0-32.0); Mean Corpuscular Hgb Conc. 32.8 g/dL (32.0-36.0); Mean Corpuscular Volume 92.6 fL (80.0-100.0); Monocytes # (auto) 0.8 uL; Monocytes % (auto) 7.6 % (0.0-12.0); Neutrophils # (auto) 8.3 uL; Neutrophils % (auto) 79.1 % (37.0-80.0); Platelet Count (auto) 188 10^3/uL (140-450); Red Blood Cells 3.76 10^6/uL (4.5-5.90); Red Cell Distribution Width 15.2 % (11.8-14.3); White Blood Cell 10.5 10^3/uL (4.4-10.8)
[2018-01-19 06:51] LABS: BUN/Creatinine Ratio 34.9; Calcium 8.5 mg/dL (8.5-10.1)
[2018-01-19] MEDS: HYDROcodone-ACET 5/325MG TAB PO PRN ×2 (08:40→14:24)
[2018-01-19 09:00] VITALS: BP 163/72
[2018-01-19] MEDS: NITROGLYCERIN 0.2MG/HR TOPICAL PATCH TD SCH (09:25)
[2018-01-19] MEDS: ASPirin-EC 81 mg tab PO SCH (09:26)
[2018-01-19] MEDS: (Sitagliptin Phosphate (Januvia) 1 TAB) PO SCH (09:27)
[2018-01-19] MEDS: CARVEDILOL 3.125 MG TAB PO SCH (09:27)
[2018-01-19] MEDS: ENOXAPARIN SOD 40 MG/0.4 ML SYRINGE SC SCH (09:28)
[2018-01-19] MEDS: SERTRALINE HCL 50 MG TAB PO SCH (09:30)
[2018-01-19] MEDS ORDERED: amLODIPine BESYLATE 5 MG TAB PO SCH (10:00)
[2018-01-19 13:00] VITALS: BP 159/71
[2018-01-19] MEDS ORDERED: CLIN1CAP4 PO (13:58)
[2018-01-19 16:32] VITALS: BP 148/77
== END 2018-01-19 19:50 | disposition home or self-care (01) | DRG 917 ==
LOC: EDBD 05:00 → ER 05:01 → TELE 05:02 → TELE-WESTW 01-18 02:20
PROVIDERS: ADMIT Internal Medicine; ATTEND Internal Medicine
PROC: 5A09357 Assistance with Respiratory Ventilation, Less than 24 Consecutive Hours, Continuous Positive Airway Pressure (ICD-10-PCS; principal; 2018-01-17)
DX: T40.2X1A Poisoning by other opioids, accidental (unintentional), initial encounter (principal); G92 Toxic encephalopathy; J96.01 Acute respiratory failure with hypoxia; N17.9 Acute kidney failure, unspecified; L03.116 Cellulitis of left lower limb; L03.115 Cellulitis of right lower limb; E44.1 Mild protein-calorie malnutrition; E11.21 Type 2 diabetes mellitus with diabetic nephropathy; E78.5 Hyperlipidemia, unspecified; E86.0 Dehydration; F03.90 Unspecified dementia, unspecified severity, without behavioral disturbance, psychotic disturbance, mood disturbance, and anxiety; G47.30 Sleep apnea, unspecified; E11.42 Type 2 diabetes mellitus with diabetic polyneuropathy; I50.9 Heart failure, unspecified; I11.0 Hypertensive heart disease with heart failure; J44.9 Chronic obstructive pulmonary disease, unspecified; Y92.89 Other specified places as the place of occurrence of the external cause; K21.9 Gastro-esophageal reflux disease without esophagitis; Z86.73 Personal history of transient ischemic attack (TIA), and cerebral infarction without residual deficits; Z95.0 Presence of cardiac pacemaker; Z83.3 Family history of diabetes mellitus; Z79.899 Other long term (current) drug therapy; Z79.82 Long term (current) use of aspirin; Z23 Encounter for immunization; Z68.32 Body mass index [BMI] 32.0-32.9, adult
CPT/HCPCS: 36415; 36600; 51702; 70450; 71045; 80048; 80053; 80061; 80307; 80320; 81001; 82550; 82805; 82962; 83036; 83605; 83735; 83880; 84439; 84443; 84481; 84484; 85025; 85379; 85610; 85652; 85730; 86141; 87040; 87086; 90674; 93005; 93306; 94640; 96361; 96365; 96375; J0696; J1815; J3490

== ENCOUNTER 2018-04-17 07:35 | Day surgery (SDC) | payer OTHER ==
[~2018-04-17] VITALS: Ht 162.6 cm; Wt 90.7 kg
[~2018-04-17 07:35] MED LIST changes: -BACL20TA PO; +CALC500C71 PO; +DILT-5 PO; -DILT240C10; +FERR-20 PO; -FURO20TA3 PO; +FURO40TA4 PO; -LEVO500T21 PO; -METR500T PO; -POTA10TA51 PO; -PRO10T PO; +SERT-160 PO; -SERT-274; -SITA100T7 PO; +SITA50TA PO; -SPIR50TA5; +TIOTCAP IN
[2018-04-17] MEDS ORDERED: IODIXANOL 320MG/ML 100ML BTL IV ONE (08:49)
[2018-04-17] MEDS ORDERED: LIDOCAINE 2%HCL (LOCAL ANESTH.) INJ 20ML MDV ONE (08:49)
[2018-04-17] MEDS ORDERED: ANGIOMAX 250 MG VIAL IV ONE (08:51)
[2018-04-17] MEDS ORDERED: MIDAZOLAM HCL 1MG/1ML-2 ML VIAL ONE (08:51)
[2018-04-17] MEDS ORDERED: fentaNYL CITRATE 100 MCG/2 ML VL ONE (08:51)
[2018-04-17] MEDS ORDERED: SODIUM CHL 0.9% 0 ML ONE (08:52)
== END 2018-04-17 12:30 | disposition home or self-care (01) ==
LOC: CATH 07:35
PROVIDERS: ATTEND Internal Medicine
DX: I25.10 Atherosclerotic heart disease of native coronary artery without angina pectoris (principal); J44.9 Chronic obstructive pulmonary disease, unspecified; G47.30 Sleep apnea, unspecified; F41.9 Anxiety disorder, unspecified; F32.9 Major depressive disorder, single episode, unspecified; I26.99 Other pulmonary embolism without acute cor pulmonale; I48.91 Unspecified atrial fibrillation; E11.51 Type 2 diabetes mellitus with diabetic peripheral angiopathy without gangrene; I11.0 Hypertensive heart disease with heart failure; Z91.5 Personal history of self-harm; Z87.891 Personal history of nicotine dependence; Z83.3 Family history of diabetes mellitus; Z79.891 Long term (current) use of opiate analgesic; Z79.899 Other long term (current) drug therapy; Z79.82 Long term (current) use of aspirin; E78.5 Hyperlipidemia, unspecified; Z86.73 Personal history of transient ischemic attack (TIA), and cerebral infarction without residual deficits; Z95.0 Presence of cardiac pacemaker; Z96.651 Presence of right artificial knee joint
CPT/HCPCS: 36247; 75716; 93005; A6257; C1760; C1769; C1894; J1644; J2250; J3010; J7030; Q9967; 99152

== ENCOUNTER 2023-02-04 15:37 | Inpatient (IN) | payer OTHER ==
[~2023-02-04] VITALS: Ht 172.7 cm; Wt 102.9 kg
[~2023-02-04 15:37] MED LIST changes: -ASP81EC PO; +ASPI-394 PO; -DILT-5 PO; +DILT120C64 PO; -DONE10TA17 PO; +DONE10TA9 PO; -FERR-20 PO; +FERR325T24 PO; -LISI40TA PO; +LISI40TA16 PO; -OMEP20TA44; +OMEP20TA44 PO; -SIMV-8 PO; +SIMV20TA20 PO; -TAMS0.4C36; +TAMS0.4C36 PO
[2023-02-04] MEDS ORDERED: PIPERACILLIN-TAZO 4.5GM 100 ML IV ONE (16:00)
[2023-02-04] MEDS ORDERED: SODIUM CHLORIDE 0.9% 1,000 ML IV ONE (16:00)
[2023-02-04] MEDS ORDERED: SODIUM CHLORIDE 0.9% 500 ML IVB ONE (16:00)
[2023-02-04 17:21] LABS: Basophils # (auto) 0 10 ^3/uL (0-0.2); Basophils % (auto) 0.2 % (0.0-2.0); Eosinophils # (auto) 0 10 ^3/uL (0-0.8); Eosinophils % (auto) 0.1 % (0.0-7.0); Hematocrit 32.6 % (41.0-53.0); Hemoglobin 10.2 g/dL (13.5-17.5); Lymphocytes # (auto) 0.1 10 ^3/uL (0.4-5.4); Lymphocytes % (auto) 1.2 % (10.0-50.0); Mean Corpuscular Hemoglobin 27.1 pg (28.0-32.0); Mean Corpuscular Hgb Conc. 31.2 g/dL (32.0-36.0); Mean Corpuscular Volume 86.7 fL (80.0-100.0); Monocytes # (auto) 0.1 10 ^3/uL (0-1.3); Monocytes % (auto) 0.6 % (0.0-12.0); Neutrophils # (auto) 12.3 10 ^3/uL (1.6-8.6); Neutrophils % (auto) 97.9 % (37.0-80.0); Red Blood Cells 3.75 10^6/uL (4.5-5.90); Red Cell Distribution Width 16.3 % (11.8-14.3); White Blood Cell 12.6 10^3/uL (4.4-10.8)
[2023-02-04 17:35] LABS: Alanine Aminotransferase 16 U/L (7-40); Albumin 3.4 g/dL (3.2-4.8); Alkaline Phosphatase 179 U/L (46-116); Anion Gap 9 (5-15); Aspartate Aminotransferase 18 U/L (13-40); BUN/Creatinine Ratio 13.6 (10.0-20.0); Bilirubin, Total 0.4 mg/dL (0.2-1.0); Blood Urea Nitrogen 22 mg/dL (9-23); Calcium 8.5 mg/dL (8.7-10.4); Carbon Dioxide 22 mmol/L (20-30); Chloride 104 mmol/L (98-107); Glucose 173 mg/dL (74-106); Magnesium 1.7 mg/dL (1.6-2.6); Potassium 3.6 mmol/L (3.5-5.1); Sodium 135 mmol/L (136-145); Total Protein 6.6 g/dL (5.7-8.2)
[2023-02-04 17:36] LABS: Lactic Acid w/Reflex 2.4 mmol/L (0.4-2.0)
[2023-02-04 18:00] VITALS: PULSE 70; RESP 14; O2SAT 98
[2023-02-04 18:14] LABS: INR 1.16 (0.9-1.15); Partial Thromboplastin Time 29.3 SEC (24.5-34.5); Prothrombin Time 12.1 sec (9.3-11.8)
[2023-02-04] MEDS ORDERED: NOREPINEPHRINE 8 MG/250ML KIT 250 ML IV ONE (18:42)
[2023-02-04] MEDS: NOREPINEPHRINE 8 MG/250ML KIT 250 ML IV SCH (18:50)
[2023-02-04 19:31] LABS: Urine Bacteria MOD /hpf (None Seen); Urine Blood 1+ /uL (Negative); Urine Clarity HAZY (Clear); Urine Color Yellow (Yellow); Urine Mucus FEW (None Seen); Urine Protein, UAD 2+ (Negative); Urine Specific Gravity 1.012 (1.001-1.035); Urine Urobilinogen Normal (Negative); Urine WBC 441 /hpf (0 - 3); Urine WBC Clumps PRESENT /hpf (None Seen)
[2023-02-04 19:41] LABS: Amphetamine Screen, Urine Neg (NEGATIVE); Barbiturate Scree,Urine Neg (NEGATIVE); Benzodiazephine Screen, Urine Neg (NEGATIVE); Cocaine Screen, Urine Neg (NEGATIVE); Opiate Scree,Urine Pos (NEGATIVE)
[2023-02-04 19:42] VITALS: PULSE 72; RESP 13; O2SAT 94
[2023-02-04 19:42] LABS: Cannabinoid Screen, Urine Neg (NEGATIVE); Phencyclidine Screen, Urine Neg (NEGATIVE)
[2023-02-05] MEDS ORDERED: VANCOMYCIN PER PHARMACY 0 MG IV SCH (03:15)
[2023-02-05] MEDS ORDERED: NITROGLYCERIN 0.4 MG SL TAB SL PRN (03:15)
[2023-02-05] MEDS ORDERED: DOCUSATE SOD 100 MG CAP PO PRN (03:15)
[2023-02-05] MEDS ORDERED: DEXTROSE (50%) 50ML SYRG IV PRN (03:15)
[2023-02-05] MEDS ORDERED: ACETAMINOPHEN 325 MG TAB PO PRN (03:15)
[2023-02-05] MEDS ORDERED: HYDROcodone-ACET 5/325MG TAB PO PRN (03:15)
[2023-02-05] MEDS ORDERED: cefTRIAXone 1GM/50ML D5W 50 ML IV SCH (04:00)
[2023-02-05] MEDS ORDERED: VANCOMYCIN 1GM/250ML 250 ML IV ONE (05:00)
[2023-02-05 05:19] LABS: Basophils # (auto) 0 10 ^3/uL (0-0.2); Basophils % (auto) 0.1 % (0.0-2.0); Eosinophils # (auto) 0 10 ^3/uL (0-0.8); Lymphocytes # (auto) 0.7 10 ^3/uL (0.4-5.4); Lymphocytes % (auto) 2.2 % (10.0-50.0); Red Blood Cells 3.75 10^6/uL (4.5-5.90)
[2023-02-05 05:20] LABS: Hematocrit 32.4 % (41.0-53.0); Hemoglobin 10.1 g/dL (13.5-17.5); Mean Corpuscular Hgb Conc. 31.1 g/dL (32.0-36.0); Mean Corpuscular Volume 86.6 fL (80.0-100.0); Monocytes # (auto) 1.9 10 ^3/uL (0-1.3); Neutrophils # (auto) 29.5 10 ^3/uL (1.6-8.6); Neutrophils % (auto) 91.7 % (37.0-80.0); Red Cell Distribution Width 16.7 % (11.8-14.3)
[2023-02-05 05:29] LABS: Alanine Aminotransferase 14 U/L (7-40); Albumin 3.4 g/dL (3.2-4.8); Alkaline Phosphatase 154 U/L (46-116); Anion Gap 9 (5-15); Aspartate Aminotransferase 18 U/L (13-40); Blood Urea Nitrogen 25 mg/dL (9-23); Calcium 8.4 mg/dL (8.7-10.4); Carbon Dioxide 23 mmol/L (20-30); Chloride 104 mmol/L (98-107); Glucose 214 mg/dL (74-106); Potassium 4.3 mmol/L (3.5-5.1); Sodium 136 mmol/L (136-145)
[2023-02-05 05:30] LABS: Bilirubin, Total 0.4 mg/dL (0.2-1.0); Total Protein 6.7 g/dL (5.7-8.2)
[2023-02-05 05:36] LABS: White Blood Cell 32.2 10^3/uL (4.4-10.8)
[2023-02-05] MEDS: SODIUM CHLOR 0.9% PF (SALINE LOCK) 10ML VIAL/SYR IV SCH ×3 (06:04→22:30)
[2023-02-05 06:05] LABS: Platelet Estimate Adequate
[2023-02-05 06:08] LABS: Ovalocytes FEW; Stomatocytes Few
[2023-02-05] MEDS: ACCU-CHEK COMFORT CURVE STRIP VI SCH ×4 (06:46→22:38)
[2023-02-05] MEDS: InsuLIN REG 1unit/0.01ml Soln (100units/ml) SC SCH ×4 (06:50→22:43)
[2023-02-05 07:30] VITALS: PULSE 62; RESP 14; O2SAT 97
[2023-02-05 09:36] LABS: Triglycerides 131 mg/dL (< 150)
[2023-02-05 09:37] LABS: LDL Cholesterol 29 mg/dL (< 100)
[2023-02-05 09:38] LABS: Cholesterol 86 mg/dL (< 200); HDL Cholesterol 28 mg/dL (40-59)
[2023-02-05] MEDS: FAMOTIDINE (10MG/ML) 2ML VL IV SCH ×2 (10:46→22:30)
[2023-02-05] MEDS: ASPirin 81 mg TAB PO SCH (10:47)
[2023-02-05] MEDS: HEPARIN SODIUM (PORCINE) 5000 UNITS/ML 1ML VIAL SC SCH ×2 (10:47→22:44)
[2023-02-05] MEDS: NOREPINEPHRINE 8 MG/250ML KIT 250 ML IV SCH (13:37)
[2023-02-05] MEDS: MORPHINE SULFATE INJ 2 MG/ml SYRG IV PRN ×3 (17:09→23:49)
[2023-02-05] MEDS: FUROSEMIDE 20 MG/2 ML VIAL IV SCH (17:11)
[2023-02-05] MEDS ORDERED: LIDOCAINE 1% (LOCAL ANESTH.) PF 5ml SDV ID ONE (17:45)
[2023-02-05] MEDS: PIPERACILLIN-TAZOB 3.375GM 100 ML IV SCH ×3 (18:45→22:48)
[2023-02-05 19:30] VITALS: PULSE 85; RESP 23; O2SAT 95
[2023-02-05] MEDS: HYDROcodone-ACET 10/325MG TAB PO PRN (20:21)
[2023-02-05] MEDS ORDERED: PHENTOLAMINE MESYLATE 5 MG INJ VIAL SUBCUT ONE (21:45)
[2023-02-05] MEDS: ATORVASTATIN 20 MG TAB PO SCH (22:30)
[2023-02-06] MEDS: PIPERACILLIN-TAZOB 3.375GM 100 ML IV SCH ×3 (03:25→19:44)
[2023-02-06] MEDS: HYDROcodone-ACET 10/325MG TAB PO PRN ×3 (03:25→18:16)
[2023-02-06] MEDS: SODIUM CHLOR 0.9% PF (SALINE LOCK) 10ML VIAL/SYR IV SCH ×3 (05:57→21:51)
[2023-02-06] MEDS: ACCU-CHEK COMFORT CURVE STRIP VI SCH ×4 (06:39→22:07)
[2023-02-06] MEDS: InsuLIN REG 1unit/0.01ml Soln (100units/ml) SC SCH ×4 (06:42→22:12)
[2023-02-06 06:49] LABS: Red Blood Cells 3.48 10^6/uL (4.5-5.90)
[2023-02-06 06:57] LABS: Hematocrit 29.9 % (41.0-53.0); Hemoglobin 9.4 g/dL (13.5-17.5); Mean Corpuscular Hgb Conc. 31.4 g/dL (32.0-36.0); Mean Corpuscular Volume 85.9 fL (80.0-100.0); Red Cell Distribution Width 16.5 % (11.8-14.3); White Blood Cell 25.1 10^3/uL (4.4-10.8)
[2023-02-06 07:04] LABS: Alanine Aminotransferase 16 U/L (7-40); Alkaline Phosphatase 149 U/L (46-116); Anion Gap 7 (5-15); Aspartate Aminotransferase 29 U/L (13-40); BUN/Creatinine Ratio 15.4 (10.0-20.0); Bilirubin, Total 0.2 mg/dL (0.2-1.0); Blood Urea Nitrogen 30 mg/dL (9-23); Calcium 8.2 mg/dL (8.7-10.4); Carbon Dioxide 25 mmol/L (20-30); Chloride 106 mmol/L (98-107); Glucose 154 mg/dL (74-106); Potassium 4.2 mmol/L (3.5-5.1); Sodium 138 mmol/L (136-145); Total Protein 5.9 g/dL (5.7-8.2)
[2023-02-06] MEDS: NOREPINEPHRINE 8 MG/250ML KIT 250 ML IV SCH (07:24)
[2023-02-06 07:26] LABS: Basophils % (manual) 0 (0.0-2.0); Blast Cells 0; Eosinophils % (manual) 0 (0-7); Metamyelocytes % 0; Myelocytes % 0; Promyelocytes % 0; Reactive Lymphocytes 0
[2023-02-06 07:45] VITALS: PULSE 68; RESP 16; O2SAT 97
[2023-02-06] MEDS: FAMOTIDINE (10MG/ML) 2ML VL IV SCH ×2 (10:20→22:10)
[2023-02-06] MEDS: ASPirin 81 mg TAB PO SCH (10:20)
[2023-02-06] MEDS: FUROSEMIDE 20 MG/2 ML VIAL IV SCH (10:21)
[2023-02-06] MEDS: HEPARIN SODIUM (PORCINE) 5000 UNITS/ML 1ML VIAL SC SCH ×2 (10:24→22:12)
[2023-02-06 10:39] LABS: Band Neutrophils % (manual) 2; Lymphocytes % (manual) 6 (10.0-50.0); Monocytes % (manual) 8 (0-12)
[2023-02-06 10:40] LABS: Ovalocytes FEW; Platelet Estimate Adequate; Stomatocytes Few; Toxic Vacuolation Present
[2023-02-06] MEDS ORDERED: VANCOMYCIN 1GM/250ML 250 ML IV ONE (15:30)
[2023-02-06] MEDS ORDERED: MEMA1TAB5 PO (16:14)
[2023-02-06 19:40] VITALS: PULSE 80; RESP 16; O2SAT 99
[2023-02-06] MEDS: ATORVASTATIN 20 MG TAB PO SCH (22:10)
[2023-02-07] MEDS: HYDROcodone-ACET 10/325MG TAB PO PRN ×2 (00:35→14:43)
[2023-02-07] MEDS: PIPERACILLIN-TAZOB 3.375GM 100 ML IV SCH (03:47)
[2023-02-07] MEDS: SODIUM CHLOR 0.9% PF (SALINE LOCK) 10ML VIAL/SYR IV SCH ×2 (06:07→14:11)
[2023-02-07] MEDS: ACCU-CHEK COMFORT CURVE STRIP VI SCH ×4 (06:57→22:33)
[2023-02-07] MEDS: InsuLIN REG 1unit/0.01ml Soln (100units/ml) SC SCH ×4 (06:59→22:33)
[2023-02-07 08:00] VITALS: PULSE 80; RESP 18; O2SAT 98
[2023-02-07] MEDS ORDERED: VANCOMYCIN 1GM/250ML 250 ML IV ONE (09:00)
[2023-02-07] MEDS: ERTAPENEM SOD INJ 1 GM in SODIUM CHL 0.9% 50 ML IV SCH (10:07)
[2023-02-07] MEDS: FAMOTIDINE (10MG/ML) 2ML VL IV SCH (10:09)
[2023-02-07] MEDS: ASPirin 81 mg TAB PO SCH (10:10)
[2023-02-07] MEDS: HEPARIN SODIUM (PORCINE) 5000 UNITS/ML 1ML VIAL SC SCH (10:10)
[2023-02-07] MEDS: ONDANSETRON HCL 4 MG/2 ML VIAL IV PRN ×2 (10:11→16:42)
[2023-02-07] MEDS: FUROSEMIDE 20 MG/2 ML VIAL IV SCH (10:13)
[2023-02-07] MEDS: MORPHINE SULFATE INJ 2 MG/ml SYRG IV PRN ×2 (10:14→16:45)
[2023-02-07] MEDS: NOREPINEPHRINE 8 MG/250ML KIT 250 ML IV SCH (19:26)
[2023-02-08] VITALS (7 sets, daily range): BP systolic 117–190; BP diastolic 45–69; PULSE 60–79; RESP 16–17; TEMP 97.7–98.5; O2SAT 90–96
[2023-02-08] MEDS: ATORVASTATIN 20 MG TAB PO SCH ×2 (00:30→21:00)
[2023-02-08] MEDS: FAMOTIDINE (10MG/ML) 2ML VL IV SCH ×3 (00:31→21:01)
[2023-02-08] MEDS: SODIUM CHLOR 0.9% PF (SALINE LOCK) 10ML VIAL/SYR IV SCH ×4 (00:31→21:05)
[2023-02-08] MEDS: HEPARIN SODIUM (PORCINE) 5000 UNITS/ML 1ML VIAL SC SCH ×3 (00:39→21:25)
[2023-02-08] MEDS: ACCU-CHEK COMFORT CURVE STRIP VI SCH ×4 (06:30→21:02)
[2023-02-08] MEDS: InsuLIN REG 1unit/0.01ml Soln (100units/ml) SC SCH ×5 (06:30→22:12)
[2023-02-08 06:34] LABS: Eosinophils # (auto) 0.1 10 ^3/uL (0-0.8); Eosinophils % (auto) 0.9 % (0.0-7.0); Lymphocytes # (auto) 1.1 10 ^3/uL (0.4-5.4); Monocytes # (auto) 0.7 10 ^3/uL (0-1.3); White Blood Cell 12.3 10^3/uL (4.4-10.8)
[2023-02-08 06:37] LABS: Basophils # (auto) 0 10 ^3/uL (0-0.2); Basophils % (auto) 0.3 % (0.0-2.0); Hematocrit 31.1 % (41.0-53.0); Hemoglobin 9.8 g/dL (13.5-17.5); Lymphocytes % (auto) 8.7 % (10.0-50.0); Mean Corpuscular Hemoglobin 27.3 pg (28.0-32.0); Mean Corpuscular Hgb Conc. 31.6 g/dL (32.0-36.0); Mean Corpuscular Volume 86.5 fL (80.0-100.0); Neutrophils # (auto) 10.3 10 ^3/uL (1.6-8.6); Neutrophils % (auto) 84.1 % (37.0-80.0); Red Blood Cells 3.59 10^6/uL (4.5-5.90); Red Cell Distribution Width 16.2 % (11.8-14.3)
[2023-02-08 06:44] LABS: Chloride 106 mmol/L (98-107); Potassium 4.1 mmol/L (3.5-5.1); Sodium 140 mmol/L (136-145)
[2023-02-08 06:45] LABS: Anion Gap 8 (5-15); Calcium 9.1 mg/dL (8.7-10.4); Carbon Dioxide 26 mmol/L (20-30)
[2023-02-08 06:50] LABS: BUN/Creatinine Ratio 13.6 (10.0-20.0); Blood Urea Nitrogen 19 mg/dL (9-23); Glucose 115 mg/dL (74-106)
[2023-02-08] MEDS ORDERED: VANCOMYCIN 1GM/250ML 250 ML IV SCH (09:00)
[2023-02-08] MEDS: FUROSEMIDE 20 MG/2 ML VIAL IV SCH (10:06)
[2023-02-08] MEDS: ASPirin 81 mg TAB PO SCH (10:06)
[2023-02-08] MEDS: ERTAPENEM SOD INJ 1 GM in SODIUM CHL 0.9% 50 ML IV SCH (11:08)
[2023-02-08] MEDS: VANCOMYCIN 1GM/250ML 250 ML IV SCH (11:08)
[2023-02-08] MEDS: hydrALAZINE HCL 20 MG/ML VL IV PRN ×2 (17:43→21:02)
[2023-02-09] VITALS (7 sets, daily range): BP systolic 123–190; BP diastolic 44–80; PULSE 60–89; RESP 16–20; TEMP 97.8–98.5; O2SAT 93–97
[2023-02-09] MEDS: SODIUM CHLOR 0.9% PF (SALINE LOCK) 10ML VIAL/SYR IV SCH ×3 (05:06→22:11)
[2023-02-09] MEDS: hydrALAZINE HCL 20 MG/ML VL IV PRN (05:06)
[2023-02-09] MEDS: InsuLIN REG 1unit/0.01ml Soln (100units/ml) SC SCH ×4 (06:00→22:11)
[2023-02-09] MEDS: ACCU-CHEK COMFORT CURVE STRIP VI SCH ×4 (06:00→22:10)
[2023-02-09] MEDS: ASPirin 81 mg TAB PO SCH (08:36)
[2023-02-09] MEDS: ERTAPENEM SOD INJ 1 GM in SODIUM CHL 0.9% 50 ML IV SCH (08:36)
[2023-02-09] MEDS: FAMOTIDINE (10MG/ML) 2ML VL IV SCH ×2 (08:37→22:09)
[2023-02-09] MEDS: FUROSEMIDE 20 MG/2 ML VIAL IV SCH (08:44)
[2023-02-09] MEDS: HEPARIN SODIUM (PORCINE) 5000 UNITS/ML 1ML VIAL SC SCH ×2 (08:44→22:10)
[2023-02-09] MEDS: VANCOMYCIN 1GM/250ML 250 ML IV SCH (10:22)
[2023-02-09] MEDS: ATORVASTATIN 20 MG TAB PO SCH (22:09)
[2023-02-09] MEDS: ENALAPRILAT 1.25 MG/ML-1ML VIAL IV SCH (22:11)
[2023-02-10] MEDS: hydrALAZINE HCL 20 MG/ML VL IV PRN (02:09)
[2023-02-10 05:00] VITALS: BP 169/68; PULSE 77; RESP 16; TEMP 98.6; O2SAT 98
[2023-02-10] MEDS: SODIUM CHLOR 0.9% PF (SALINE LOCK) 10ML VIAL/SYR IV SCH ×3 (06:30→21:23)
[2023-02-10] MEDS: ACCU-CHEK COMFORT CURVE STRIP VI SCH ×4 (06:30→21:24)
[2023-02-10] MEDS: InsuLIN REG 1unit/0.01ml Soln (100units/ml) SC SCH ×4 (06:30→22:03)
[2023-02-10 08:00] VITALS: BP_SYST 128; BP_SYST 152; BP_DIAS 80; BP_DIAS 88; PULSE 71; PULSE 74; PULSE 75; RESP 16; RESP 18; TEMP 97.9; TEMP 99.2; O2SAT 95; O2SAT 97
[2023-02-10] MEDS: ERTAPENEM SOD INJ 1 GM in SODIUM CHL 0.9% 50 ML IV SCH (10:41)
[2023-02-10] MEDS: ASPirin 81 mg TAB PO SCH (10:42)
[2023-02-10] MEDS: FAMOTIDINE (10MG/ML) 2ML VL IV SCH ×2 (10:42→21:23)
[2023-02-10] MEDS: ENALAPRILAT 1.25 MG/ML-1ML VIAL IV SCH ×2 (10:44→21:23)
[2023-02-10] MEDS: HEPARIN SODIUM (PORCINE) 5000 UNITS/ML 1ML VIAL SC SCH ×2 (10:45→22:03)
[2023-02-10] MEDS: FUROSEMIDE 20 MG/2 ML VIAL IV SCH (10:48)
[2023-02-10] MEDS: VANCOMYCIN 1GM/250ML 250 ML IV SCH (11:31)
[2023-02-10 12:00] VITALS: BP 153/60; PULSE 70; RESP 21; TEMP 97.4; O2SAT 94
[2023-02-10 16:00] VITALS: BP 115/52; PULSE 74; RESP 20; TEMP 99.2; O2SAT 98
[2023-02-10 20:00] VITALS: PULSE 64; PULSE 67; RESP 18; O2SAT 96
[2023-02-10] MEDS: ATORVASTATIN 20 MG TAB PO SCH (21:23)
[2023-02-10] MEDS: MORPHINE SULFATE INJ 2 MG/ml SYRG IV PRN (21:41)
[2023-02-10 22:00] VITALS: BP 138/47; PULSE 69; RESP 18; TEMP 98.5; O2SAT 96
[2023-02-11] VITALS (7 sets, daily range): BP systolic 129–166; BP diastolic 54–73; PULSE 60–70; RESP 17–19; TEMP 98.2–98.7; O2SAT 94–99
[2023-02-11] MEDS: SODIUM CHLOR 0.9% PF (SALINE LOCK) 10ML VIAL/SYR IV SCH ×3 (05:52→23:03)
[2023-02-11] MEDS: ACCU-CHEK COMFORT CURVE STRIP VI SCH ×4 (05:52→23:04)
[2023-02-11] MEDS: MORPHINE SULFATE INJ 2 MG/ml SYRG IV PRN (05:53)
[2023-02-11] MEDS: InsuLIN REG 1unit/0.01ml Soln (100units/ml) SC SCH ×4 (05:57→23:10)
[2023-02-11] MEDS: hydrALAZINE HCL 20 MG/ML VL IV PRN (06:49)
[2023-02-11] MEDS: ERTAPENEM SOD INJ 1 GM in SODIUM CHL 0.9% 50 ML IV SCH (10:14)
[2023-02-11] MEDS: FAMOTIDINE (10MG/ML) 2ML VL IV SCH ×2 (10:18→22:51)
[2023-02-11] MEDS: ASPirin 81 mg TAB PO SCH (10:18)
[2023-02-11] MEDS: HEPARIN SODIUM (PORCINE) 5000 UNITS/ML 1ML VIAL SC SCH ×2 (10:18→23:10)
[2023-02-11] MEDS: FUROSEMIDE 20 MG/2 ML VIAL IV SCH (10:19)
[2023-02-11] MEDS: ENALAPRILAT 1.25 MG/ML-1ML VIAL IV SCH ×2 (10:19→22:57)
[2023-02-11] MEDS: HYDROcodone-ACET 10/325MG TAB PO PRN ×3 (10:51→23:39)
[2023-02-11] MEDS: VANCOMYCIN 1GM/250ML 250 ML IV SCH (11:38)
[2023-02-11] MEDS: ATORVASTATIN 20 MG TAB PO SCH (23:00)
[2023-02-12] VITALS (7 sets, daily range): BP systolic 140–156; BP diastolic 55–74; PULSE 59–82; RESP 14–18; TEMP 97.4–98.9; O2SAT 95–100
[2023-02-12] MEDS: hydrALAZINE HCL 20 MG/ML VL IV PRN (00:44)
[2023-02-12] MEDS: ACCU-CHEK COMFORT CURVE STRIP VI SCH ×4 (06:45→22:04)
[2023-02-12] MEDS: SODIUM CHLOR 0.9% PF (SALINE LOCK) 10ML VIAL/SYR IV SCH ×3 (06:46→22:04)
[2023-02-12] MEDS: HYDROcodone-ACET 10/325MG TAB PO PRN ×3 (06:46→22:04)
[2023-02-12] MEDS: InsuLIN REG 1unit/0.01ml Soln (100units/ml) SC SCH ×4 (06:57→22:00)
[2023-02-12] MEDS: FAMOTIDINE (10MG/ML) 2ML VL IV SCH ×2 (10:15→22:03)
[2023-02-12] MEDS: ENALAPRILAT 1.25 MG/ML-1ML VIAL IV SCH ×2 (10:16→22:03)
[2023-02-12] MEDS: HEPARIN SODIUM (PORCINE) 5000 UNITS/ML 1ML VIAL SC SCH ×2 (10:16→22:13)
[2023-02-12] MEDS: ASPirin 81 mg TAB PO SCH (10:17)
[2023-02-12] MEDS: FUROSEMIDE 20 MG/2 ML VIAL IV SCH (10:18)
[2023-02-12] MEDS: ERTAPENEM SOD INJ 1 GM in SODIUM CHL 0.9% 50 ML IV SCH (10:28)
[2023-02-12] MEDS: VANCOMYCIN 1GM/250ML 250 ML IV SCH (11:43)
[2023-02-12] MEDS: Juven Orange Powder PACKET 27.5gm PO SCH (22:00)
[2023-02-12] MEDS: ATORVASTATIN 20 MG TAB PO SCH (22:04)
[2023-02-13] VITALS (8 sets, daily range): BP systolic 125–156; BP diastolic 55–79; PULSE 65–77; RESP 17–19; TEMP 97.7–99.1; O2SAT 92–98
[2023-02-13] MEDS: SODIUM CHLOR 0.9% PF (SALINE LOCK) 10ML VIAL/SYR IV SCH ×3 (05:44→22:22)
[2023-02-13] MEDS: ACCU-CHEK COMFORT CURVE STRIP VI SCH ×4 (05:47→22:56)
[2023-02-13] MEDS: HYDROcodone-ACET 10/325MG TAB PO PRN ×3 (05:50→22:20)
[2023-02-13] MEDS: InsuLIN REG 1unit/0.01ml Soln (100units/ml) SC SCH ×3 (06:51→22:00)
[2023-02-13] MEDS: ENALAPRILAT 1.25 MG/ML-1ML VIAL IV SCH ×2 (10:07→22:20)
[2023-02-13] MEDS: FAMOTIDINE (10MG/ML) 2ML VL IV SCH ×2 (10:07→22:21)
[2023-02-13] MEDS: HEPARIN SODIUM (PORCINE) 5000 UNITS/ML 1ML VIAL SC SCH ×2 (10:08→22:31)
[2023-02-13] MEDS: FUROSEMIDE 20 MG/2 ML VIAL IV SCH (10:09)
[2023-02-13] MEDS: ASPirin 81 mg TAB PO SCH (10:09)
[2023-02-13] MEDS: ERTAPENEM SOD INJ 1 GM in SODIUM CHL 0.9% 50 ML IV SCH (10:12)
[2023-02-13] MEDS: Juven Orange Powder PACKET 27.5gm PO SCH ×2 (10:18→22:00)
[2023-02-13] MEDS: VANCOMYCIN 1GM/250ML 250 ML IV SCH (11:00)
[2023-02-13] MEDS: ATORVASTATIN 20 MG TAB PO SCH (22:20)
[2023-02-13] MEDS ORDERED: VANCOMYCIN 1GM/250ML 250 ML IV SCH (23:00)
[2023-02-14] MEDS: HYDROcodone-ACET 10/325MG TAB PO PRN ×3 (04:31→18:00)
[2023-02-14] MEDS: SODIUM CHLOR 0.9% PF (SALINE LOCK) 10ML VIAL/SYR IV SCH ×2 (04:32→13:32)
[2023-02-14 05:00] VITALS: BP 161/57; PULSE 67; RESP 16; TEMP 98.6; O2SAT 98
[2023-02-14] MEDS: InsuLIN REG 1unit/0.01ml Soln (100units/ml) SC SCH ×3 (06:10→17:00)
[2023-02-14] MEDS: ACCU-CHEK COMFORT CURVE STRIP VI SCH ×3 (06:10→17:23)
[2023-02-14] MEDS: hydrALAZINE HCL 20 MG/ML VL IV PRN ×2 (06:20→13:31)
[2023-02-14 08:00] VITALS: BP 173/62; PULSE 68; PULSE 73; RESP 18; TEMP 98.4; O2SAT 99
[2023-02-14 08:10] VITALS: BP 173/62; PULSE 68; RESP 18; TEMP 98.4; O2SAT 99
[2023-02-14] MEDS: FAMOTIDINE (10MG/ML) 2ML VL IV SCH (10:31)
[2023-02-14] MEDS: ERTAPENEM SOD INJ 1 GM in SODIUM CHL 0.9% 50 ML IV SCH (10:31)
[2023-02-14] MEDS: ENALAPRILAT 1.25 MG/ML-1ML VIAL IV SCH (10:32)
[2023-02-14] MEDS: ASPirin 81 mg TAB PO SCH (10:32)
[2023-02-14] MEDS: FUROSEMIDE 20 MG/2 ML VIAL IV SCH (10:32)
[2023-02-14] MEDS: HEPARIN SODIUM (PORCINE) 5000 UNITS/ML 1ML VIAL SC SCH (10:39)
[2023-02-14] MEDS: Juven Orange Powder PACKET 27.5gm PO SCH (10:41)
[2023-02-14] MEDS ORDERED: LINE1TAB10 PO (11:59)
[2023-02-14] MEDS ORDERED: LINEZOLID 600MG TABLET PO SCH (12:03)
[2023-02-14 12:20] VITALS: BP 165/60; PULSE 71; RESP 18; TEMP 98.6; O2SAT 99
[2023-02-14 16:15] VITALS: BP 155/80; PULSE 78; RESP 18; TEMP 98.6; O2SAT 97
== END 2023-02-14 19:40 | DRG 871 ==
LOC: ER 15:37 → EDBD 15:37 → TELE 02-05 03:22 → TELE-WESTW 02-07 21:07
PROVIDERS: ADMIT Nurse Practitioner Family; ATTEND Internal Medicine Pulmonary Disease
PROC: 06HY33Z Insertion of Infusion Device into Lower Vein, Percutaneous Approach (ICD-10-PCS; 2023-02-05)
PROC: B54BZZA Ultrasonography of Right Lower Extremity Veins, Guidance (ICD-10-PCS; 2023-02-05)
PROC: 05HY33Z Insertion of Infusion Device into Upper Vein, Percutaneous Approach (ICD-10-PCS; 2023-02-05)
PROC: B54NZZA Ultrasonography of Left Upper Extremity Veins, Guidance (ICD-10-PCS; 2023-02-05)
PROC: 05HF33Z Insertion of Infusion Device into Left Cephalic Vein, Percutaneous Approach (ICD-10-PCS; principal; 2023-02-11)
PROC: B54NZZA Ultrasonography of Left Upper Extremity Veins, Guidance (ICD-10-PCS; 2023-02-11)
DX: A41.51 Sepsis due to Escherichia coli [E. coli] (principal); G93.41 Metabolic encephalopathy; J15.69 Pneumonia due to other Gram-negative bacteria; N17.9 Acute kidney failure, unspecified; N12 Tubulo-interstitial nephritis, not specified as acute or chronic; I13.0 Hypertensive heart and chronic kidney disease with heart failure and stage 1 through stage 4 chronic kidney disease, or unspecified chronic kidney disease; I50.32 Chronic diastolic (congestive) heart failure; Z51.5 Encounter for palliative care; D63.8 Anemia in other chronic diseases classified elsewhere; E11.51 Type 2 diabetes mellitus with diabetic peripheral angiopathy without gangrene; E11.22 Type 2 diabetes mellitus with diabetic chronic kidney disease; N18.32 Chronic kidney disease, stage 3b; E66.9 Obesity, unspecified; R09.89 Other specified symptoms and signs involving the circulatory and respiratory systems; E78.5 Hyperlipidemia, unspecified; Z74.01 Bed confinement status; Z83.3 Family history of diabetes mellitus; Z86.73 Personal history of transient ischemic attack (TIA), and cerebral infarction without residual deficits; Z95.0 Presence of cardiac pacemaker
CPT/HCPCS: 36415; 70450; 71045; 76937; 78582; 80048; 80053; 80061; 80202; 80307; 81001; 82565; 82962; 83036; 83605; 83735; 83880; 84443; 84484; 85007; 85025; 85027; 85379; 85610; 85730; 87040; 87077; 87086; 87088; 87186; 93005; 96365; G0378; J0696; J1335; J1815; J2405; J2543; J3490

== ENCOUNTER 2024-08-06 21:41 | Inpatient (IN) | payer OTHER, MEDICARE ==
[~2024-08-06] VITALS: Ht 177.8 cm; Wt 98.0 kg
[~2024-08-06 21:41] MED LIST changes: -ASPI-394 PO; -CALC500C71 PO; -CLON0.1T14 PO; +DILT120C20 PO; -DILT120C64 PO; +DONE1TAB88 PO; -FERR325T24 PO; +GLIP5TAB21 PO; +HYDR50TA47 PO; -LISI40TA16 PO; +MEMA1TAB5 PO; +OMEP-448 PO; +OMEP1CAP70 PO; -OMEP20TA44 PO; +POTA-228 PO; +SIMV10TA20 PO; -SIMV20TA20 PO; +SITA100T7 PO; -SITA50TA PO; +SPIR25TA8 PO; -TAMS0.4C36 PO; +TAMS0.4C39 PO; -TIOTCAP IN
--- NOTE | 2024-08-06 23:06 | ED.PDOC ---
History of Present Illness HPI Comments 83-year-old male BIBA for Juárez catheter issue. Per EMS, hospice nurse was trying to remove patinets Juárez and was unable to remove it. Hospice nurse was then instructed to cut the Juárez catheter and was still unable to remove it. Patient winces in pain when attempting to remove the Juárez. Chief Complaint: Urinary Time Seen by MD: 22:38 Primary Care Provider: unknown Reviewed Notes: Medications, Allergies Allergies: Coded Allergies: NO KNOWN ALLERGIES (Unverified , 04/13/18) Home Meds Reported Medications Glipizide (Glipizide) 5 Mg Tab, 1 TAB PO DAILY 07/19/23 Spironolactone (Spironolactone) 25 Mg Tab, 1 TAB PO DAILY 07/19/23 Furosemide (Furosemide) 40 Mg Tab, 1 TAB PO DAILY 07/19/23 Hydralazine Hcl (Hydralazine Hcl) 50 Mg Tab, 1 TAB PO TID 07/19/23 Diltiazem Hcl (Diltiazem Hcl Er) 120 Mg Cap, 1 TAB PO DAILY 07/19/23 Sitagliptin Phosphate (Januvia) 100 Mg Tab, 1 TAB PO DAILY 07/19/23 Simvastatin (Simvastatin) 10 Mg Tab, 1 TAB PO DAILY 07/19/23 Omeprazole (Omeprazole Dr) 40 Mg Cap, 1 TAB PO DAILY 07/19/23 Memantine Hydrochloride (Memantine HCl) 10 Mg Tab, 10 MG PO DAILY, TAB 02/06/23 Sertraline Hcl (Sertraline Hcl) 100 Mg Tab, 2 TAB PO DAILY 04/13/18 Metoprolol Tartrate (Metoprolol Tartrate) 50 Mg Tab, 50 MG PO DAILY for 30 Days, MG 03/06/17 Donepezil Hydrochloride (Aricept) 10 Mg Tab, 10 MG PO BID, TAB 03/06/17 Gabapentin (Gabapentin) 600 Mg Tab, 600 MG PO TID, MG 03/06/17 Tamsulosin Hcl (Tamsulosin Hcl) 0.4 Mg Cap, 1 CAP PO HS, #60 01/10/14 Hydrocodone-Acetaminophen (Hydrocodone/Acetaminophen) 1 Tab Tab, 10-325 MG PO TIDP PRN for PAIN SCALE 7 THRU 10, #120 01/10/14 Information Source: Emergency Med Personnel Mode of Arrival: EMS Severity: Moderate Timing: Hours Duration: Since onset Prehospital treatment: 12 Lead EKG, Wood Gouger, Oxygen Past Medical History PAST MEDICAL HISTORY: Anemia, CHF, CVA, DM, GERD, High Lipids, HTN Surgical History: Pacemaker Family History Family History: Unobtainable Social History Smoker: Non-Smoker Alcohol: Denies ETOH Use Drugs: Denies Drug Use Lives In: Home Constitutional: denies: chills, diaphoresis, fatigue, fever, malaise, sweats, weakness, others EENTM: denies: blurred vision, double vision, ear bleeding, ear discharge, ear drainage, ear pain, ear ringing, eye pain, eye redness, hearing loss, mouth pain, mouth swelling, nasal discharge, nose bleeding, nose congestion, nose pain, photophobia, tearing, throat pain, throat swelling, voice changes, others Respiratory: denies: cough, hemoptysis, orthopnea, SOB at rest, shortness of breath, SOB with excertion, stridor, wheezing, others Cardiovascular: denies: chest pain, dizzy spells, diaphoresis, Dyspnea on exertion, edema, irregular heart beat, left arm pain, lightheadedness, palpitations, PND, syncope, others Gastrointestinal: denies: abdomen distended, abdominal pain, blood streaked bowels, constipated, diarrhea, dysphagia, difficulty swallowing, hematemesis, melena, nausea, poor appetite, poor fluid intake, rectal bleeding, rectal pain, vomiting, others Genitourinary: reports: pain; denies: burning, dysuria, flank pain, frequency, hematuria, incontinence, penile discharge, penile sore, testicle pain, testicle swelling, urgency, others Neurological: denies: dizziness, fainting, headache, left sided numbness, left sided weakness, numbness, paresthesia, pre-existing deficit, right sided numbness, right sided weakness, seizure, speech problems, tingling, tremors, weakness, others Musculoskeletal: denies: back pain, gout, joint pain, joint swelling, muscle pain, muscle stiffness, neck pain, others Integumetry: denies: bruises, change in color, change in hair/nails, dryness, laceration, lesions, lumps, rash, wounds, others Allergic/Immunocompromised: denies: Difficulty Healing, Frequent Infections, Hives, Itching, others Hematologic/Lymphatic: denies: anemia, blood clots, easy bleeding, easy bruising, swollen glands, others Endocrine: denies: excessive hunger, excessive sweating, excessive thirst, excessive urination, flushing, intolerance to cold, intolerance to heat, unexplained weight gain, unexplained weight loss, others Psychiatric: denies: anxiety, bipolar disorder, depression, hopeless, panic disorder, schizophrenia, sleepless, suicidal, others All Other Systems: Reviewed and Negative Physical Exam General Appearance: No Apparent Distress, Normal HEENT: Normal ENT Inspection, Pharynx Normal, TMs Normal Neck: Full Range of Motion, Non-Tender, Normal, Normal Inspection Respiratory: Chest Non-Tender, Lungs Clear, No Accessory Muscle Use, No Respiratory Distress, Normal Breath Sounds Cardiovascular: No Edema, No JVD, No Murmur, No Gallop, Normal Peripheral Pulses, Regular Rate/Rhythm Breast Exam: Deferred Gastrointestinal: No Organomegaly, Non Tender, No Pulsatile Mass, Normal Bowel Sounds, Soft Genitalia: Deferred Pelvic: Deferred Rectal: Deferred Extremities: No calf tenderness, Normal capillary refill, Normal inspection, Normal range of motion, Non-tender, No pedal edema Musculoskeletal : Apperance: Normal Neurologic: Alert, 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 Was a procedure done?: No Differential Dx Considerations may include: Juárez catheter complication X-Ray, Labs, Meds, VS Vital Signs Date Time Temp Pulse Resp B/P (MAP) Pulse Ox O2 Delivery O2 Flow Rate FiO2 08/06/24 23:44 60 08/06/24 21:48 99.0 60 14 150/71 (97) 98 99.0 Lab Test 08/06/24 23:16 Range/Units White Blood Count 10.0 4.4-10.8 10^3/uL Red Blood Count 3.21 L 4.5-5.90 10^6/uL Hemoglobin 9.1 L 13.5-17.5 g/dL Hematocrit 28.0 L 41.0-53.0 % Mean Corpuscular Volume 87.2 80.0-100.0 fL Mean Corpuscular Hemoglobin 28.3 28.0-32.0 pg Mean Corpuscular Hemoglobin Concent 32.5 32.0-36.0 g/dL Red Cell Distribution Width 16.1 H 11.8-14.3 % Platelet Count 240 140-450 10^3/uL Mean Platelet Volume 8.3 6.9-10.8 fL Neutrophils (%) (Auto) 81.0 H 37.0-80.0 % Lymphocytes (%) (Auto) 11.9 10.0-50.0 % Monocytes (%) (Auto) 6.0 0.0-12.0 % Eosinophils (%) (Auto) 0.9 0.0-7.0 % Basophils (%) (Auto) 0.2 0.0-2.0 % Neutrophils # (Auto) 8.1 1.6-8.6 10 ^3/uL Lymphocytes # (Auto) 1.2 0.4-5.4 10 ^3/uL Monocytes # (Auto) 0.6 0-1.3 10 ^3/uL Eosinophils # (Auto) 0.1 0-0.8 10 ^3/uL Basophils # (Auto) 0 0-0.2 10 ^3/uL Nucleated Red Blood Cells 0.0 % Sodium Level 137 136-145 mmol/L Potassium Level 4.5 3.5-5.1 mmol/L Chloride Level 107 98-107 mmol/L Carbon Dioxide Level 22 20-31 mmol/L Anion Gap 8 5-15 Blood Urea Nitrogen 58 H 9-23 mg/dL Creatinine 3.41 H 0.700-1.30 mg/dL Glomerular Filtration Rate Calc 17 >90 mL/min BUN/Creatinine Ratio 17.0 10.0-20.0 Serum Glucose 134 H 74-106 mg/dL Calcium Level 9.2 8.7-10.4 mg/dL Time of 1ST Reevaluation: 23:25 Reevaluation 1ST: Unchanged Patient Education/Counseling: Diagnosis, Treatment Family Education/Counseling: No Family Present Departure 1 Departure Time of Disposition: 01:17 (Patient's Juárez catheter stuck we will not be removed. Hospice nurse who previously cut it there is seems to be no air in it. We will admit patient for further workup and urology consultation) Impression: Primary Impression: Complication of Juárez catheter Qualified Codes: T83.9XXA - Unspecified complication of genitourinary prosthetic device, implant and graft, initial encounter Disposition: ADMITTED INPATIENT Admit to: Med Surg Condition: Serious Critical Care Note Critical Care Time?: No Stability Stability form required: No Heart Score Heart Score: Heart Score Response (Comments) Value History N/A 0 EKG N/A 0 Age N/A 0 Risk Factors N/A 0 Troponin N/A 0 Total 0 I personally scribed for ALICIA RANGEL MD ([email or web address]) on 08/06/24 at 23:06. Electronically submitted by See Lozano ([email or web address]). ALICIA RANGEL MD Aug 06, 2024 23:06
[2024-08-06 23:34] LABS: Basophils # (auto) 0 10 ^3/uL (0-0.2); Basophils % (auto) 0.2 % (0.0-2.0); Eosinophils # (auto) 0.1 10 ^3/uL (0-0.8); Eosinophils % (auto) 0.9 % (0.0-7.0); Hemoglobin 9.1 g/dL (13.5-17.5); Lymphocytes # (auto) 1.2 10 ^3/uL (0.4-5.4); Lymphocytes % (auto) 11.9 % (10.0-50.0); Mean Corpuscular Hemoglobin 28.3 pg (28.0-32.0); Mean Corpuscular Hgb Conc. 32.5 g/dL (32.0-36.0); Mean Corpuscular Volume 87.2 fL (80.0-100.0); Monocytes # (auto) 0.6 10 ^3/uL (0-1.3); Neutrophils # (auto) 8.1 10 ^3/uL (1.6-8.6); Platelet Count (auto) 240 10^3/uL (140-450); Red Blood Cells 3.21 10^6/uL (4.5-5.90); Red Cell Distribution Width 16.1 % (11.8-14.3)
[2024-08-06 23:45] LABS: Chloride 107 mmol/L (98-107); Potassium 4.5 mmol/L (3.5-5.1); Sodium 137 mmol/L (136-145)
[2024-08-06 23:46] LABS: Anion Gap 8 (5-15); Carbon Dioxide 22 mmol/L (20-31)
[2024-08-06 23:47] LABS: Calcium 9.2 mg/dL (8.7-10.4)
[2024-08-06 23:52] LABS: Blood Urea Nitrogen 58 mg/dL (9-23); Glucose 134 mg/dL (74-106)
[2024-08-07] VITALS (11 sets, daily range): BP systolic 142–189; BP diastolic 54–57; PULSE 60–67; RESP 15–61; TEMP 97–98.2; O2SAT 90–100
--- NOTE | 2024-08-07 00:09 | DVH ---
CHEST RADIOGRAPH Indication: abdominal pain Technique: Single frontal view of the chest was obtained COMPARISON: XY CHEST PORTABLE on DOS: 07/17/23, XY CHEST XRAY 1 VIEW on DOS: 02/05/23, XY CHEST XRAY 1 VIEW on DOS: 02/05/23, XY CHEST PORTABLE on DOS: 02/05/23, XY CHEST PORTABLE on DOS: 02/04/23 FINDINGS: Lines and Tubes: Left anterior chest wall cardiac pacing device. Lungs: Stable chronic appearing bilateral interstitial pulmonary markings. No evidence of focal conso lidation. suspected new small left pleural effusion. No pneumothorax. Cardiomediastinal contours: Unremarkable Bones: Unremarkable IMPRESSION: 1. Suspected new small left pleural effusion.
--- NOTE | 2024-08-07 02:08 | ECG ---
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
[2024-08-07] MEDS ORDERED: DOCUSATE SOD 100 MG CAP PO PRN (02:15)
[2024-08-07] MEDS ORDERED: ONDANSETRON HCL 4 MG/2 ML VIAL IV PRN (02:15)
[2024-08-07] MEDS ORDERED: ACETAMINOPHEN 325 MG TAB PO PRN (02:15)
--- NOTE | 2024-08-07 02:23 | DVHHPRES ---
History of Present Illness Resident Creating Document: RYAN SEGURA RESIDENT History of Present Illness Anupam Purdy is a 83-year-old male patient who presents to the ED due to inability of hospice nurse to remove Juárez catheter associated with suprapubic pain. Patient currently in altered mental status (baseline is unknown), he comes from on board and Care for hospice care, he revoked hospice. Obtain information from EMR, called family contacts who did not answer at 3:00 a.m. could not obtain review of systems due to clinical status Past medical history: Hypertension, dyslipidemia, diabetes, obesity, CHF, sick sinus syndrome status post permanent pacemaker placement, PAD, nonhealing stage IV sacral decubitus ulcer last culture showed E coli ESBL, chronic right heel osteomyelitis, multiple UTIs (on 2022 E coli ESBL) has chronic indwelling Juárez, CKD, CVA currently bed-bound, normocytic anemia. Surgical history: Pacemaker placement and peripheral angiography with no intervention Family history: Noncontributory Social history: Lives in board and care with hospice services. Could not confirm history of tobacco, alcohol and other drug abuse Allergies: Denies Home medication: Could not obtain Patient seen and examined at bedside. He is currently obtunded, has Prashant- Powers breathing pattern, vital signs are within normal limits. Obtain ABG which showed mild hypoxemia, indicated oxygen therapy and no higher than2 liters/minute. Past Medical History Per HPI Past Surgical History Per HPI Family History Per HPI Past Social History Per HPI Review of Systems Review of Systems Per HPI Allergies: Coded Allergies: NO KNOWN ALLERGIES (Unverified , 04/13/18) Exam Vital Signs Vital Signs Date Time Temp Pulse Resp B/P (MAP) Pulse Ox O2 Delivery O2 Flow Rate FiO2 08/06/24 23:44 60 08/06/24 21:48 99.0 14 150/71 (97) 98 99.0 Exam Patient lying in bed, in no acute distress General: Cabrera, GCS: 10, afebrile, mucosae are moist Cardiovascular: Normal S1 and S2. No murmurs, gallops or rubs Respiratory: Normal ventilation mechanics. Clear lung sounds on auscultation Abdomen: Soft, nontender, no organomegaly, normal bowel sounds MSK/skin: Mobilizes 4 limbs. Skin is dry and warm Neurological: Orientation could not be evaluated. No motor no sensitive deficits. Pupils are isocoric and reactive Labs/Xrays Labs Test 08/06/24 23:16 Range/Units White Blood Count 10.0 4.4-10.8 10^3/uL Red Blood Count 3.21 L 4.5-5.90 10^6/uL Hemoglobin 9.1 L 13.5-17.5 g/dL Hematocrit 28.0 L 41.0-53.0 % Mean Corpuscular Volume 87.2 80.0-100.0 fL Mean Corpuscular Hemoglobin 28.3 28.0-32.0 pg Mean Corpuscular Hemoglobin Concent 32.5 32.0-36.0 g/dL Red Cell Distribution Width 16.1 H 11.8-14.3 % Platelet Count 240 140-450 10^3/uL Mean Platelet Volume 8.3 6.9-10.8 fL Neutrophils (%) (Auto) 81.0 H 37.0-80.0 % Lymphocytes (%) (Auto) 11.9 10.0-50.0 % Monocytes (%) (Auto) 6.0 0.0-12.0 % Eosinophils (%) (Auto) 0.9 0.0-7.0 % Basophils (%) (Auto) 0.2 0.0-2.0 % Neutrophils # (Auto) 8.1 1.6-8.6 10 ^3/uL Lymphocytes # (Auto) 1.2 0.4-5.4 10 ^3/uL Monocytes # (Auto) 0.6 0-1.3 10 ^3/uL Eosinophils # (Auto) 0.1 0-0.8 10 ^3/uL Basophils # (Auto) 0 0-0.2 10 ^3/uL Nucleated Red Blood Cells 0.0 % Sodium Level 137 136-145 mmol/L Potassium Level 4.5 3.5-5.1 mmol/L Chloride Level 107 98-107 mmol/L Carbon Dioxide Level 22 20-31 mmol/L Anion Gap 8 5-15 Blood Urea Nitrogen 58 H 9-23 mg/dL Creatinine 3.41 H 0.700-1.30 mg/dL Glomerular Filtration Rate Calc 17 >90 mL/min BUN/Creatinine Ratio 17.0 10.0-20.0 Serum Glucose 134 H 74-106 mg/dL Calcium Level 9.2 8.7-10.4 mg/dL Assessment/Plan Assessment/Plan Assessment: Probable metabolic encephalopathy due to UTI versus vascular dementia Acute respiratory failure probably secondary to CHF Acute on chronic diastolic congestive heart failure (HFpEF, LVEF 70%) Ruled out acute urinary retention JOHN hemodynamically mediated on CKD Probable UTI (pending UA) Sacral decubitus wound stage IV - present on admission Chronic left foot osteomyelitis Sick sinus syndrome status post permanent pacemaker PAD History of CVA Chronic normocytic anemia probably due to CKD Hypertension Dyslipidemia Diabetes Plan: Obtain urinary ultrasound which showed no acute urinary retention. Balloon is deflated but could not be removed. Consulted Urology to remove Juárez catheter. Currently on empiric IV antibiotic (meropenem and linezolid), antibiotics chosen by previous cultures. Currently on IV diuretics, oxygen therapy and bronchodilators Obtain allen cultures (blood, urine, wound). Consulted nephrology. Patient was not on aspirin, has history of CVA and also PAD. Initiated aspirin at this time. Goals of care could not be discussed with patient due to clinical status. Patient revoked hospice care. Treated as full code. Tried to call family but they did not answer. Discussed plan with Dr. Brady, patient and nurses: Patient under empiric IV antibiotics, and oxygen therapy, bronchodilators. Consulted Urology for removal of Juárez catheter, patient currently has no urinary retention confirmed with kidney ultrasound. Plan discussed with: Patient, Other (Nurses per family member but did not shredder picker at 3:00 a.m.) My Orders Orders - RYAN SEGURA RESIDENT Procedure Category Date Status Time Admit ADMIT 08/07/24 Transmitted 02:15 Code Status CODE 08/07/24 Transmitted 02:15 Vital Signs [facility] 08/07/24 In Process 02:15 Review Orders With [facility] 08/07/24 In Process Adm. 02:15 Npo (Nothing By DIET 08/07/24 Transmitted Mouth) Diet Breakfast Docusate Sodium PHA 08/07/24 Logged Capsule (Colace 02:15 Acetaminophen Tablet PHA 08/07/24 Logged (Tylenol Tablet) 02:15 Notify Of Changes [facility] 08/07/24 In Process From Base 02:15 Advance Directive [facility] 08/07/24 In Process 02:15 Patient Condition ORDERS 08/07/24 Transmitted 02:15 Allergies [facility] 08/07/24 In Process 02:15 Ondansetron Hcl PHA 08/07/24 Logged (Zofran) 02:15 Morphine Sulfate PHA 08/07/24 Logged Injection 02:15 Enoxaparin Sodium PHA 08/07/24 Logged (Lovenox) 10:00 Oxygen By Nasal RT 08/07/24 Transmitted Cannula 02:15 Stat Ekg For Chest [facility] 08/07/24 In Process Pain 02:15 Notify Of Changes DEST[facility] 08/07/24 In Process From Base 02:15 Hand Box Folder For [facility] 08/07/24 In Process 24 Hours 02:15 Emergency Dysrhythmia [facility] 08/07/24 In Process Protocol 02:15 Rhythm Strips Once [facility] 08/07/24 In Process Every Shift 02:15 Vitamin D, 25-Hydroxy LAB 08/07/24 Logged 02:15 Vitamin B12 LAB 08/07/24 Logged 02:15 Thyroid Stimulating LAB 08/07/24 Logged Hormone 02:15 Magnesium LAB 08/07/24 Logged 02:15 Lactic Acid W/ Reflex LAB 08/07/24 Logged Order 02:15 PTPTT LAB 08/07/24 Logged 02:15 Phosphorus LAB 08/07/24 Logged 02:15 Hemoglobin A1c LAB 08/07/24 Logged 02:15 Drug Screen LAB 08/07/24 Logged 02:15 Complete Blood Count LAB 08/07/24 Logged 04:00 Comprehensive LAB 08/07/24 Logged Metabolic Panel 04:00 Urine Sodium LAB 08/07/24 Verified 02:21 Urine LAB 08/07/24 Verified Protein/Creatinine Urine Protein LAB 08/07/24 Verified 02:21 Urine Creatinine LAB 08/07/24 Verified 02:21 Microalbumin Random LAB 08/07/24 Verified Urine 02:21 Kidney US 08/07/24 Verified 02:21 Date of Service: Aug 07, 2024 Billing Provider: DOREEN BRADY MD Common Visit Codes: [id number] INP/OBS CARE (HIGH) RYAN SEGURA RESIDENT Aug 07, 2024 02:23
--- NOTE | 2024-08-07 02:55 | DVH ---
US KIDNEY HISTORY: JOHN vs CKD COMPARISON: US KIDNEY on DOS: 07/17/23 TECHNIQUE: Transverse and longitudinal grayscale and color Doppler images were obtained of the kidney s and bladder. FINDINGS: Right kidney measures 9.4 cm in length. Left kidney is not visualized due to patient body habitus and positioning. Right renal echotexture is preserved with thinning of the renal cortex. No hydronephros is. Urinary bladder is incompletely distended. IMPRESSION: 1. Limited evaluation with visualization of only the right kidney which demonstrates mild renal corti yan thinning. Nonvisualization of the left kidney.
[2024-08-07 03:01] LABS: INR 1.02 (0.9-1.15); Partial Thromboplastin Time 32.2 SEC (24.5-34.5); Prothrombin Time 10.8 sec (9.3-11.8)
[2024-08-07 03:07] LABS: Base Excess -2.6 mmol/L (-2.0-3.0)
[2024-08-07 04:09] LABS: Basophils # (auto) 0 10 ^3/uL (0-0.2); Basophils % (auto) 0.1 % (0.0-2.0); Eosinophils # (auto) 0.1 10 ^3/uL (0-0.8); Eosinophils % (auto) 1.1 % (0.0-7.0); Hematocrit 27.9 % (41.0-53.0); Hemoglobin 8.8 g/dL (13.5-17.5); Lymphocytes # (auto) 1.5 10 ^3/uL (0.4-5.4); Lymphocytes % (auto) 15.4 % (10.0-50.0); Mean Corpuscular Hemoglobin 27.6 pg (28.0-32.0); Mean Corpuscular Hgb Conc. 31.4 g/dL (32.0-36.0); Mean Corpuscular Volume 87.7 fL (80.0-100.0); Monocytes # (auto) 0.5 10 ^3/uL (0-1.3); Monocytes % (auto) 5.4 % (0.0-12.0); Neutrophils # (auto) 7.6 10 ^3/uL (1.6-8.6); Platelet Count (auto) 213 10^3/uL (140-450); Red Blood Cells 3.18 10^6/uL (4.5-5.90); Red Cell Distribution Width 16.5 % (11.8-14.3); White Blood Cell 9.8 10^3/uL (4.4-10.8)
[2024-08-07 04:29] LABS: Alanine Aminotransferase 11 U/L (7-40); Alkaline Phosphatase 86 U/L (46-116); Anion Gap 7 (5-15); BUN/Creatinine Ratio 16.8 (10.0-20.0); Calcium 9.4 mg/dL (8.7-10.4); Carbon Dioxide 25 mmol/L (20-31); Chloride 107 mmol/L (98-107); Phosphorus 4.2 mg/dL (2.4-5.1); Potassium 4.3 mmol/L (3.5-5.1); Sodium 139 mmol/L (136-145)
[2024-08-07] MEDS ORDERED: MEROPENEM 500MG PREMIX 50 ML IV SCH (04:30)
[2024-08-07 04:34] LABS: Total Protein 7.5 g/dL (5.7-8.2)
[2024-08-07 04:37] LABS: Blood Urea Nitrogen 57 mg/dL (9-23); Glucose 128 mg/dL (74-106)
[2024-08-07 04:38] LABS: Aspartate Aminotransferase 10 U/L (13-40); Bilirubin, Total 0.2 mg/dL (0.2-1.0); Magnesium 2.7 mg/dL (1.6-2.6)
[2024-08-07] MEDS ORDERED: DEXTROSE (50%) 50ML SYRG IV PRN (05:15)
[2024-08-07] MEDS: GABAPENTIN 300 MG CAP PO SCH (06:00)
[2024-08-07] MEDS: LEVALBUTEROL HCL 1.25 MG/3 ML NEB NEB SCH (06:51)
[2024-08-07] MEDS: IPRATROPIUM BROM 0.5 MG/2.5ML INH SOL NEB SCH (06:51)
[2024-08-07] MEDS: InsuLIN REG 1unit/0.01ml Soln (100units/ml) SC SCH (06:52)
[2024-08-07] MEDS: ACCU-CHEK COMFORT CURVE STRIP VI SCH (06:52)
[2024-08-07 07:36] LABS: Urine Bacteria FEW /hpf (None Seen); Urine Blood 2+ /uL (Negative); Urine Clarity Turbid (Clear); Urine Color Colorless (Yellow); Urine Protein, UAD 2+ (Negative); Urine Specific Gravity 1.016 (1.001-1.035); Urine Squamous Epithelial Cell None Seen /hpf (<5); Urine Urobilinogen Normal (Negative); Urine WBC 137 /HPF (0-3); Urine WBC Clumps PRESENT /hpf (None Seen)
[2024-08-07 07:42] LABS: Creatinine, Urine 74.58 mg/dL (30.0-125.0)
[2024-08-07 07:43] LABS: Creatinine, Urine 71.83 mg/dL (30.0-125.0)
[2024-08-07 07:48] LABS: Urine Protein/Creatinine Ratio 4.23
[2024-08-07 07:52] LABS: Amphetamine Screen, Urine Neg (NEGATIVE); Barbiturate Scree,Urine Neg (NEGATIVE); Benzodiazephine Screen, Urine Neg (NEGATIVE); Cannabinoid Screen, Urine Neg (NEGATIVE); Cocaine Screen, Urine Neg (NEGATIVE); Opiate Scree,Urine Pos (NEGATIVE); Phencyclidine Screen, Urine Neg (NEGATIVE); Protein, Urine 304.1 mg/dL (1-14); Protein, Urine 326.8 mg/dL (1-14)
[2024-08-07] MEDS: MEROPENEM 500MG PREMIX 50 ML IV SCH (08:28)
[2024-08-07] MEDS ORDERED: ENOXAPARIN SOD 40 MG/0.4 ML SYRINGE SC SCH (10:00)
[2024-08-07] MEDS: ASPirin 81 mg TAB PO SCH (10:29)
[2024-08-07] MEDS: SERTRALINE HCL 50 MG TAB PO SCH (10:29)
[2024-08-07] MEDS: MEMANTINE HCL 5 MG TAB PO SCH (10:30)
[2024-08-07] MEDS: LINEZOLID 600MG/300ML 300 ML IV SCH (10:30)
[2024-08-07] MEDS: ENOXAPARIN SOD 30 MG/0.3 ML SYRINGE SC SCH (10:30)
[2024-08-07] MEDS: PANTOPRAZOLE 40 MG TAB PO SCH (10:30)
[2024-08-07] MEDS: FUROSEMIDE 20 MG/2 ML VIAL IV SCH (10:31)
[2024-08-07] MEDS: MORPHINE SULFATE INJ 2 MG/ml SYRG IV PRN (10:34)
--- NOTE | 2024-08-07 16:32 | DVHPNRES ---
Progress Note Date Seen: Aug 07, 2024 Resident Creating Document: MICHAEL CRUZ RESIDENT Medical Necessity Reason Pt with a Central, PICC or Fol: No The following are medically ne: Juárez Catheter Subjective Review of Systems Anupam Purdy is a 83-year-old male past medical history of Hypertension, dyslipidemia, diabetes, obesity, CHF, sick sinus syndrome status post permanent pacemaker placement, PAD, nonhealing stage IV sacral decubitus ulcer last culture showed E coli ESBL, chronic right heel osteomyelitis, multiple UTIs (on 2022 E coli ESBL) has chronic indwelling Juárez, CKD, CVA currently bed-bound, normocytic anemia. Information was gathered after talking to patient's glazier structural glass and POA Ms. Good, . patient who presents to the ED due to inability of hospice nurse to remove Juárez catheter associated with suprapubic pain. Patient currently in altered mental status (baseline is unknown), he comes from on [facility] for hospice care, he revoked hospice. Patient was recently discharged from [facility] on 07/20/23 treated for sepsis due to UTI, hepatic encephalopathy.. Patient had bacteremia with ESBL E. coli started on meropenem converted to Invanz right foot wound showed MRSA and the sacral decub ulcer stage IV showed ESBL. Patient was discharged with Invanz. Initial lab workup revealed anemia with a hemoglobin 9.1, serum creatinine 3.41, lactic acid 0.9, urinalysis nitrite 2+, WBC 137, bacteria few. Ultrasound-. Limited evaluation with visualization of only the right kidney which demonstrates mild renal cortical thinning. Nonvisualization of the left kidney. CXR- Suspected new small left pleural effusion. Past medical history: Hypertension, dyslipidemia, diabetes, obesity, CHF, sick sinus syndrome status post permanent pacemaker placement, PAD, nonhealing stage IV sacral decubitus ulcer last culture showed E coli ESBL, chronic right heel osteomyelitis, multiple UTIs (on 2022 E coli ESBL) has chronic indwelling Juárez, CKD, CVA currently bed-bound, normocytic anemia. Surgical history: Pacemaker placement and peripheral angiography with no intervention Family history: Noncontributory Social history: Lives in board and care with hospice services. Could not confirm history of tobacco, alcohol and other drug abuse Allergies: Denies Home medication: Could not obtain Patient with confusion, poor historian, details of the other system could not be obtained. Patient was was seen today for clinical evaluation. Less than chart reviewed. Patient with confusion, poor historian, health technical writer spoke to patient's caregiver Ms. Good, discussed patient's plan of care. Pending Urology consult for replacement of catheter. We will continue IV antibiotic meropenem and Zyvox. Objective vital signs Vital Sign Date Time Temp Pulse Resp B/P (MAP) Pulse Ox O2 Delivery O2 Flow Rate FiO2 08/07/24 14:01 64 16 141/49 (79) 97 08/07/24 13:30 97.8 97.8 08/07/24 07:45 Nasal Cannula* 2 28 medications Current Medications Medications Dose Ordered Sig/Sheila Route Start Time Stop Time Status Last Admin Dose Admin Docusate Sodium 100 mg BIDPRN PRN PO 08/07/24 02:15 Acetaminophen 650 mg Q6HP PRN PO 08/07/24 02:15 Ondansetron HCl 4 mg Q4HP PRN IV 08/07/24 02:15 Morphine Sulfate 2 mg Q4HPRN PRN IV 08/07/24 02:15 08/07/24 10:34 2 MG Enoxaparin Sodium 40 mg DAILY SC 08/07/24 10:00 UNV Enoxaparin Sodium 30 mg DAILY SC 08/07/24 10:00 08/07/24 10:30 30 MG Gabapentin 600 mg TID PO 08/07/24 06:00 08/07/24 14:46 600 MG Memantine 10 mg DAILY PO 08/07/24 10:00 08/07/24 10:30 10 MG Pantoprazole Sodium 40 mg DAILY PO 08/07/24 10:00 08/07/24 10:30 40 MG Sertraline HCl 200 mg DAILY PO 08/07/24 10:00 08/07/24 10:29 200 MG Pravastatin Sodium 20 mg HS PO 08/07/24 22:00 Aspirin 81 mg DAILY PO 08/07/24 10:00 08/07/24 10:29 81 MG Linezolid 300 ml @ 150 mls/hr Q12HR IV 08/07/24 10:00 08/07/24 10:30 150 MLS/HR Ipratropium [place] 0.5 mg Q6HWA NEB 08/07/24 06:00 08/07/24 12:03 0.5 MG Levalbuterol HCl 0.625 mg Q6HR NEB 08/07/24 06:00 08/07/24 12:03 0.625 MG Furosemide 20 mg DAILY IV 08/07/24 10:00 08/07/24 10:31 20 MG Diagnostic Test (Pha) 1 strip ACHS 08/07/24 07:00 08/07/24 11:32 1 STRIP Insulin Human Regular ACHS SC 08/07/24 07:00 08/07/24 11:39 3 UNITS Dextrose 50 ml UD PRN IV 08/07/24 05:15 Examination General examination- awake, conversant HEENT- PEERLA, no acute nasal discharge Cardiovascular- S1-S2 audible, rate and rhythm regular, no murmur Respiratory- CTAB, no wheeze or rhonchi Gastrointestinal-nontender, bowel sound+. Nondistended Musculoskeletal-no acute joint swelling or tenderness or redness Lower extremity- no leg edema Neurological- patient was confusion, poor historian, Psychiatry-AAO 1-2 Skin- no acute rash or purpura laboratory and microbiology Laboratory Tests 08/07/24 03:50 Test 08/07/24 03:50 Range/Units Serum Glucose 128 H 74-106 mg/dL Problem List/Assessment/Plan Problem List/Assessment/Plan Assessment and plan Probable metabolic encephalopathy due to UTI versus vascular dementia Acute respiratory failure probably secondary to CHF Acute on chronic diastolic congestive heart failure (HFpEF, LVEF 70%) Ruled out acute urinary retention JOHN hemodynamically mediated on CKD Probable UTI (pending UA) Sacral decubitus wound stage IV - present on admission Chronic left foot osteomyelitis Sick sinus syndrome status post permanent pacemaker PAD History of CVA Chronic normocytic anemia probably due to CKD Hypertension Dyslipidemia Diabetes Plan: Continue aspirin 81 mg p.o. daily Lasix 20 mg IV daily Gabapentin 600 mg p.o. t.i.d. Continue IV meropenem and Zyvox as prescribed Continue pravastatin 20 mg p.o. daily Sertraline 200 mg p.o. daily Continue pantoprazole as prescribed Continue Lovenox as prescribed Continue other medication as prescribed Obtain urinary ultrasound which showed no acute urinary retention. Balloon is deflated but could not be removed. Consulted Urology to remove Juárez catheter. Patient is hospice, at this time patient be treated as full code. Goals of care, Code status ; discussed with >15 minutes PUD prophylaxis: Pantoprazole DVT prophylaxis: Lovenox Plan discussed with Dr. Garner , nursing staff, Total time spent on patient evaluation, chart review, assessment and plan, discussion discussion >35 minutes Plan discussed with: Patient, Other (RN) My Orders My Orders Orders - MICHAEL CRUZ Procedure Category Date Status Time Rapid Influenza A&B LAB 08/07/24 In Process 10:42 Covid19 Antigen Amy LAB 08/07/24 In Process Date of Service: Aug 07, 2024 Billing Provider: ALEN PIERCE MD Common Visit Codes: [id number] INP/OBS CARE(HIGH) MICHAEL CRUZ Aug 07, 2024 16:32 ALEN PIERCE MD August 10, 2024 20:16
[2024-08-07 16:58] LABS: COVID19 ANTIGEN SOFIA FIA NEGATIVE (NEGATIVE); Rapid Influenza A Negative (Negative); Rapid Influenza B Negative (Negative)
[2024-08-07] MEDS: PRAVASTATIN SODIUM 20 MG TAB PO SCH (21:07)
[2024-08-08] VITALS (18 sets, daily range): BP systolic 116–160; BP diastolic 56–106; PULSE 60–94; RESP 16–20; TEMP 97.9–98.7; O2SAT 90–100
[2024-08-08 05:38] LABS: Basophils # (auto) 0 10 ^3/uL (0-0.2); Basophils % (auto) 0.3 % (0.0-2.0); Eosinophils # (auto) 0.1 10 ^3/uL (0-0.8); Eosinophils % (auto) 1.5 % (0.0-7.0); Hematocrit 27.6 % (41.0-53.0); Lymphocytes % (auto) 11.9 % (10.0-50.0); Mean Corpuscular Hemoglobin 27.6 pg (28.0-32.0); Mean Corpuscular Hgb Conc. 32.4 g/dL (32.0-36.0); Mean Corpuscular Volume 85.1 fL (80.0-100.0); Monocytes # (auto) 0.5 10 ^3/uL (0-1.3); Monocytes % (auto) 6.1 % (0.0-12.0); Neutrophils # (auto) 6.6 10 ^3/uL (1.6-8.6); Neutrophils % (auto) 80.2 % (37.0-80.0); Nucleated Red Blood Cells % 0.1 %; Platelet Count (auto) 233 10^3/uL (140-450); Red Blood Cells 3.25 10^6/uL (4.5-5.90); Red Cell Distribution Width 16.1 % (11.8-14.3); White Blood Cell 8.2 10^3/uL (4.4-10.8)
[2024-08-08 06:03] LABS: Alanine Aminotransferase 11 U/L (7-40); Alkaline Phosphatase 80 U/L (46-116); Anion Gap 10 (5-15); BUN/Creatinine Ratio 18.8 (10.0-20.0); Calcium 9.7 mg/dL (8.7-10.4); Carbon Dioxide 25 mmol/L (20-31); Chloride 107 mmol/L (98-107); Potassium 3.9 mmol/L (3.5-5.1); Sodium 142 mmol/L (136-145); Total Protein 7.6 g/dL (5.7-8.2)
[2024-08-08 06:06] LABS: Bilirubin, Total 0.2 mg/dL (0.2-1.0); Blood Urea Nitrogen 53 mg/dL (9-23); Glucose 124 mg/dL (74-106); Magnesium 2.7 mg/dL (1.6-2.6)
[2024-08-08 06:12] LABS: Aspartate Aminotransferase 10 U/L (13-40)
[2024-08-08] MEDS ORDERED: hydrALAZINE HCL 20 MG/ML VL IV PRN ×2 (08:30→09:15)
--- NOTE | 2024-08-08 11:21 | DVHCONRES ---
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 Patient is currently bed-bound unable to move the lower extremities and minimal right leg movement but no presence of lower extremity edema. Renal ultrasound showed right kidney cortical cleaning and left kidney not visualized lab were consistent with the acute kidney injury (improving) unstable hemoglobin, increased magnesium levels 2.7 but normally hemoglobin A1c) history of diabetes (urine culture grew more than 100 CFU with presence of negative rods. Patient is currently on antibiotics linezolid and meropenem. Family History: Diabetes mellitus G8 FATHER, Onset:50's - 60 Allergies: Coded Allergies: NO KNOWN ALLERGIES (Unverified , 04/13/18) Home Meds Reported Medications Potassium Chloride (Potassium Chloride ER) 10 Meq Tab, 1 TAB PO DAILY for 30 Days, #30 08/08/24 Donepezil Hydrochloride (DONEPEZIL HCL) 10 Mg Tab, 1 TAB PO DAILY for 30 Days, #30 08/08/24 Omeprazole (Omeprazole Dr) 20 Mg Cap, 1 CAP PO DAILY for 30 Days, #30 08/08/24 Glipizide (Glipizide) 5 Mg Tab, 1 TAB PO DAILY 07/19/23 Spironolactone (Spironolactone) 25 Mg Tab, 1 TAB PO DAILY 07/19/23 Furosemide (Furosemide) 40 Mg Tab, 1 TAB PO DAILY 07/19/23 Hydralazine Hcl (Hydralazine Hcl) 50 Mg Tab, 1 TAB PO TID 07/19/23 Diltiazem Hcl (Diltiazem Hcl Er) 120 Mg Cap, 1 TAB PO DAILY 07/19/23 Sitagliptin Phosphate (Januvia) 100 Mg Tab, 1 TAB PO DAILY for 30 Days, #30 07/19/23 Simvastatin (Simvastatin) 10 Mg Tab, 1 TAB PO DAILY 07/19/23 Memantine Hydrochloride (Memantine HCl) 10 Mg Tab, 10 MG PO DAILY, TAB 02/06/23 Sertraline Hcl (Sertraline Hcl) 100 Mg Tab, 2 TAB PO DAILY 04/13/18 Metoprolol Tartrate (Metoprolol Tartrate) 50 Mg Tab, 50 MG PO DAILY for 30 Days, MG 03/06/17 Gabapentin (Gabapentin) 600 Mg Tab, 600 MG PO TID, MG 03/06/17 Tamsulosin Hcl (Tamsulosin Hcl) 0.4 Mg Cap, 1 CAP PO HS for 30 Days, #30 01/10/14 Hydrocodone-Acetaminophen (Hydrocodone/Acetaminophen) 1 Tab Tab, 10-325 MG PO TIDP PRN for PAIN SCALE 7 THRU 10, #120 01/10/14 Discontinued Reported Medications Omeprazole (Omeprazole Dr) 40 Mg Cap, 1 TAB PO DAILY 07/19/23 Current Medications Current Medications Medications (Trade) Dose Ordered Sig/Sheila Route PRN Reason Start Time Stop Time Status Last Admin Pravastatin Sodium (Pravachol Tablet) 20 mg HS PO 08/07/24 22:00 Hydralazine HCl (Apresoline Injection) 10 mg Q6HP PRN IV diastolic BP >90 08/08/24 08:30 08/08/24 09:12 DC Hydralazine HCl (Apresoline Injection) 10 mg Q6HP PRN IV SBP > 160 OR diastolic BP >90 08/08/24 09:15 Review of Systems Patient is poor historian, full review of systems unable to obtain Vital Signs Vital Signs Date Time Temp Pulse Resp B/P (MAP) Pulse Ox O2 Delivery O2 Flow Rate FiO2 08/08/24 09:23 160/59 08/08/24 08:00 69 18 96 Nasal Cannula* 2 28 08/08/24 07:55 98.5 98.5 Physical Exam Examination General Appearance: Sleepy, obese, Alert on times, Oriented X3, No acute distress HEENT: EOMI Respiratory: Clear to auscultation, Normal air movement Cardiovascular: Regular rate, Normal S1, Normal S2 Abdominal: Normal bowel sounds Extremities: No cyanosis, No edema, Normal pulses, No tenderness/swelling Skin: No rashes, No breakdown Neuro: Paraplegic, bed-bound Normal speech, Strength at 5/5 X4 ext, Normal tone, Sensation intact, Cranial nerves 3-12 NL, Reflexes 2+ Psych/Mental Status: Mental status NL, Mood NL Labs/Diagnostic Data Labs Test 08/08/24 05:48 08/08/24 05:00 08/07/24 15:58 08/07/24 07:05 Range/Units POC Glucose 125 H 70-106 mg/dl White Blood Count 8.2 4.4-10.8 10^3/uL Red Blood Count 3.25 L 4.5-5.90 10^6/uL Hemoglobin 9.0 L 13.5-17.5 g/dL Hematocrit 27.6 L 41.0-53.0 % Mean Corpuscular Volume 85.1 80.0-100.0 fL Mean Corpuscular Hemoglobin 27.6 L 28.0-32.0 pg Mean Corpuscular Hemoglobin Concent 32.4 32.0-36.0 g/dL Red Cell Distribution Width 16.1 H 11.8-14.3 % Platelet Count 233 140-450 10^3/uL Mean Platelet Volume 8.0 6.9-10.8 fL Neutrophils (%) (Auto) 80.2 H 37.0-80.0 % Lymphocytes (%) (Auto) 11.9 10.0-50.0 % Monocytes (%) (Auto) 6.1 0.0-12.0 % Eosinophils (%) (Auto) 1.5 0.0-7.0 % Basophils (%) (Auto) 0.3 0.0-2.0 % Neutrophils # (Auto) 6.6 1.6-8.6 10 ^3/uL Lymphocytes # (Auto) 1.0 0.4-5.4 10 ^3/uL Monocytes # (Auto) 0.5 0-1.3 10 ^3/uL Eosinophils # (Auto) 0.1 0-0.8 10 ^3/uL Basophils # (Auto) 0 0-0.2 10 ^3/uL Nucleated Red Blood Cells 0.1 % Sodium Level 142 136-145 mmol/L Potassium Level 3.9 3.5-5.1 mmol/L Chloride Level 107 98-107 mmol/L Carbon Dioxide Level 25 20-31 mmol/L Anion Gap 10 5-15 Blood Urea Nitrogen 53 H 9-23 mg/dL Creatinine 2.82 H 0.700-1.30 mg/dL Glomerular Filtration Rate Calc 22 >90 mL/min BUN/Creatinine Ratio 18.8 10.0-20.0 Serum Glucose 124 H 74-106 mg/dL Calcium Level 9.7 8.7-10.4 mg/dL Magnesium Level 2.7 H 1.6-2.6 mg/dL Total Bilirubin 0.2 0.2-1.0 mg/dL Aspartate Amino Transferase (AST) 10 L 13-40 U/L Alanine Aminotransferase (ALT) 11 7-40 U/L Alkaline Phosphatase 80 46-116 U/L Total Protein 7.6 5.7-8.2 g/dL Albumin 4.0 3.2-4.8 g/dL Folic Acid 46.81 >5.38 ng/mL Influenza Type A Antigen Negative Negative Influenza Type B Antigen Negative Negative SARS-CoV-2 Antigen (Rapid) Negative NEGATIVE Urine Color Colorless Yellow Urine Clarity Turbid H Clear Urine pH 6.0 5.0-9.0 Urine Specific [place] 1.016 1.001-1.035 Urine Protein 2+ H Negative Urine Ketones Negative Negative Urine Blood 2+ H Negative /uL Urine Nitrite 2+ H Negative Urine Bilirubin Negative Negative Urine Urobilinogen Normal Negative mg/dL Urine Leukocyte Esterase 3+ Negative /uL Urine RBC 31 0 - 3 /hpf Urine WBC Clumps Present None Seen /hpf Urine Microscopic WBC 137 H 0-3 /HPF Urine Squamous Epithelial Cells None seen <5 /hpf Urine Bacteria Few H None Seen /hpf Urine Creatinine 71.83 30.0-125.0 mg/dL Urine Microalbumin 1593.0 H <30.0 mg/L Urine Protein/Creatinine Ratio 4.23 Urine Sodium 35 L 40-220 mmol/L Urine Glucose Normal Normal mg/dL Urine Total Protein 304.1 H 1-14 mg/dL Urine Opiates Screen Pos NEGATIVE Urine Fentanyl Screen Neg NEGATIVE Urine Barbiturates Screen Neg NEGATIVE Urine Phencyclidine Screen Neg NEGATIVE Urine Amphetamines Screen Neg NEGATIVE Urine Benzodiazepines Screen Neg NEGATIVE Urine Cocaine Screen Neg NEGATIVE Urine Cannabinoids Screen Neg NEGATIVE Test 08/07/24 03:50 08/07/24 02:47 08/06/24 23:16 Range/Units Hemoglobin A1c 5.7 <5.7 % A1C Lactic Acid Level 0.9 0.4-2.0 mmol/L Phosphorus Level 4.2 2.4-5.1 mg/dL Vitamin B12 Level > 4000 H 211-911 pg/mL Vitamin D 25-Hydroxy 42.0 30.0-100 ng/mL Thyroid Stimulating Hormone (TSH) 0.36 L 0.55-4.78 uIU/mL Blood Gas Specimen Type Arterial Blood Gas Sample Site Right radial Blood Gas Patient Temperature 37.0 Arterial Blood Date Drawn [id number] Arterial Blood pH 7.326 L 7.350-7.450 Arterial Blood Partial Pressure CO2 45.7 35.0-48.0 mmHg Arterial Blood Partial Pressure O2 55.1 L 83.0-108.0 mmHg Arterial Blood HCO3 23.3 21.0-28.0 mmol/L Arterial Blood Oxygen Saturation 87.7 L 94.0-98.0 % Arterial Blood Base Excess -2.6 L -2.0-3.0 mmol/L Arterial Blood Oxyhemoglobin 87.0 L 94.0-98.0 % Arterial Blood Carboxyhemoglobin 0.4 L 0.5-1.5 % Arterial Blood Methemoglobin 0.4 0.0-1.5 % Ryne Test Modified Blood Gas Total Hemoglobin 9.80 L 13.5-17.5 g/dL Blood Gas Modality Room air FiO2 % 21.0 Prothrombin Time 10.8 9.3-11.8 sec Prothrombin Time INR 1.02 0.9-1.15 Activated Partial Thromboplast Time 32.2 24.5-34.5 SEC Microbiology Date/Time Source Procedure Growth Status 08/07/24 15:00 Sacrum Gram Stain Pending Resulted 08/07/24 15:00 Sacrum Wound Culture - Preliminary Resulted 08/07/24 07:05 Voided Urine Urine Culture - Preliminary Resulted 08/07/24 03:54 Blood Blood Culture - Preliminary NO GROWTH AFTER 24 HOURS OF INCUBATION. 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 Agree with above, we will follow closely breen changed pt on hospice prior Plan discussed with: Patient BUBBA LAMB August 08, 2024 11:21 KAREN PANCHAL MD August 08, 2024 19:43
[2024-08-08] MEDS: FUROSEMIDE 20 MG/2 ML VIAL IV ONE (13:40)
[2024-08-08] MEDS: HYDROcodone-ACET 10/325MG TAB PO PRN (17:12)
--- NOTE | 2024-08-08 18:14 | DVHPNRES ---
Progress Note Date Seen: August 08, 2024 Resident Creating Document: MICHAEL CRUZ RESIDENT Medical Necessity Reason Pt with a Central, PICC or Fol: No The following are medically ne: Juárez Catheter Subjective Review of Systems Anupam Purdy is a 83-year-old male past medical history of Hypertension, dyslipidemia, diabetes, obesity, CHF, sick sinus syndrome status post permanent pacemaker placement, PAD, nonhealing stage IV sacral decubitus ulcer last culture showed E coli ESBL, chronic right heel osteomyelitis, multiple UTIs (on 2022 E coli ESBL) has chronic indwelling Juárez, CKD, CVA currently bed-bound, normocytic anemia. Information was gathered after talking to patient's tufter operator and POA Ms. Good, . patient who presents to the ED due to inability of hospice nurse to remove Juárez catheter associated with suprapubic pain. Patient currently in altered mental status (baseline is unknown), he comes from on board and Care for hospice care, he revoked hospice. Patient was recently discharged from [facility] on 07/20/23 treated for sepsis due to UTI, hepatic encephalopathy.. Patient had bacteremia with ESBL E. coli started on meropenem converted to Invanz right foot wound showed MRSA and the sacral decub ulcer stage IV showed ESBL. Patient was discharged with Invanz. Initial lab workup revealed anemia with a hemoglobin 9.1, serum creatinine 3.41, lactic acid 0.9, urinalysis nitrite 2+, WBC 137, bacteria few. Ultrasound-. Limited evaluation with visualization of only the right kidney which demonstrates mild renal cortical thinning. Nonvisualization of the left kidney. CXR- Suspected new small left pleural effusion. Past medical history: Hypertension, dyslipidemia, diabetes, obesity, CHF, sick sinus syndrome status post permanent pacemaker placement, PAD, nonhealing stage IV sacral decubitus ulcer last culture showed E coli ESBL, chronic right heel osteomyelitis, multiple UTIs (on 2022 E coli ESBL) has chronic indwelling Juárez, CKD, CVA currently bed-bound, normocytic anemia. Surgical history: Pacemaker placement and peripheral angiography with no intervention Family history: Noncontributory Social history: Lives in board and care with hospice services. Could not confirm history of tobacco, alcohol and other drug abuse Allergies: Denies Home medication: Could not obtain Patient with confusion, poor historian, details of the other system could not be obtained. Patient was was seen today for clinical evaluation. Less than chart reviewed. 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 Good, discussed patient's plan of care. Patient had Juárez's catheter change last night by urologist, blood culture negative, uterine culture preliminary Gram-negative rods. We will continue IV antibiotic meropenem and Zyvox. Objective vital signs Vital Sign Date Time Temp Pulse Resp B/P (MAP) Pulse Ox O2 Delivery O2 Flow Rate FiO2 08/08/24 15:58 98.1 84 20 151/63 (92) 90 98.1 08/08/24 08:00 Nasal Cannula* 2 28 Total Intake and Output 08/07/24 08/07/24 08/08/24 15:00 23:00 07:00 Intake Total 350 ml 350 ml Output Total 1300 ml Balance 350 ml -950 ml medications Current Medications Medications Dose Ordered Sig/Sheila Route Start Time Stop Time Status Last Admin Dose Admin Docusate Sodium 100 mg BIDPRN PRN PO 08/07/24 02:15 Acetaminophen 650 mg Q6HP PRN PO 08/07/24 02:15 Ondansetron HCl 4 mg Q4HP PRN IV 08/07/24 02:15 Morphine Sulfate 2 mg Q4HPRN PRN IV 08/07/24 02:15 08/07/24 10:34 2 MG Enoxaparin Sodium 40 mg DAILY SC 08/07/24 10:00 UNV Enoxaparin Sodium 30 mg DAILY SC 08/07/24 10:00 08/08/24 09:23 30 MG Gabapentin 600 mg TID PO 08/07/24 06:00 08/07/24 14:46 600 MG Memantine 10 mg DAILY PO 08/07/24 10:00 08/07/24 10:30 10 MG Pantoprazole Sodium 40 mg DAILY PO 08/07/24 10:00 08/07/24 10:30 40 MG Sertraline HCl 200 mg DAILY PO 08/07/24 10:00 08/07/24 10:29 200 MG Pravastatin Sodium 20 mg HS PO 08/07/24 22:00 Aspirin 81 mg DAILY PO 08/07/24 10:00 08/07/24 10:29 81 MG Linezolid 300 ml @ 150 mls/hr Q12HR IV 08/07/24 10:00 08/08/24 12:05 150 MLS/HR Ipratropium Rhine 0.5 mg Q6HWA NEB 08/07/24 06:00 08/08/24 12:36 0.5 MG Levalbuterol HCl 0.625 mg Q6HR NEB 08/07/24 06:00 08/08/24 12:36 0.625 MG Diagnostic Test (Pha) 1 strip ACHS 08/07/24 07:00 08/08/24 17:00 1 STRIP Insulin Human Regular ACHS SC 08/07/24 07:00 08/08/24 17:37 3 UNITS Dextrose 50 ml UD PRN IV 08/07/24 05:15 Hydralazine HCl 10 mg Q6HP PRN IV 08/08/24 09:15 Furosemide 40 mg DAILY IV 08/09/24 10:00 Acetaminophen/ Hydrocodone Bitart 1 tab Q6HP PRN PO 08/08/24 16:15 08/08/24 17:12 1 TAB Examination General examination- awake, conversant HEENT- PEERLA, no acute nasal discharge Cardiovascular- S1-S2 audible, rate and rhythm regular, no murmur Respiratory- CTAB, no wheeze or rhonchi Gastrointestinal-nontender, bowel sound+. Nondistended Musculoskeletal-no acute joint swelling or tenderness or redness Lower extremity- no leg edema Neurological- patient was confusion, poor historian, Psychiatry-AAO 1-2 Skin- no acute rash or purpura laboratory and microbiology Laboratory Tests 08/08/24 05:00 Test 08/08/24 05:00 Range/Units Serum Glucose 124 H 74-106 mg/dL Microbiology Date/Time Source Procedure Growth Status 08/07/24 15:00 Sacrum Gram Stain - Final Resulted 08/07/24 15:00 Sacrum Wound Culture - Preliminary Resulted 08/07/24 07:05 Voided Urine Urine Culture - Preliminary Resulted 08/07/24 03:54 Blood Blood Culture - Preliminary NO GROWTH AFTER 24 HOURS OF INCUBATION. Resulted Problem List/Assessment/Plan Problem List/Assessment/Plan Assessment and plan-Patient had Juárez's catheter change last night by urologist, blood culture negative, uterine culture preliminary Gram-negative rods. We will continue IV antibiotic meropenem and Zyvox. Probable metabolic encephalopathy due to UTI versus vascular dementia Acute respiratory failure probably secondary to CHF Acute on chronic diastolic congestive heart failure (HFpEF, LVEF 70%) Ruled out acute urinary retention JOHN hemodynamically mediated on CKD Probable UTI (pending UA) Sacral decubitus wound stage IV - present on admission Chronic left foot osteomyelitis Sick sinus syndrome status post permanent pacemaker PAD History of CVA Chronic normocytic anemia probably due to CKD Hypertension Dyslipidemia Diabetes Plan: Continue aspirin 81 mg p.o. daily Lasix 20 mg IV daily Gabapentin 600 mg p.o. t.i.d. Continue IV meropenem and Zyvox as prescribed Continue pravastatin 20 mg p.o. daily Sertraline 200 mg p.o. daily Continue pantoprazole as prescribed Continue Lovenox as prescribed Continue other medication as prescribed Obtain urinary ultrasound which showed no acute urinary retention. Balloon is deflated but could not be removed. Consulted Urology to remove Juárez catheter. Patient is hospice, at this time patient be treated as full code. Goals of care, Code status ; discussed with >15 minutes PUD prophylaxis: Pantoprazole DVT prophylaxis: Lovenox Plan discussed with Dr. Garner , nursing staff, Total time spent on patient evaluation, chart review, assessment and plan, discussion discussion >35 minutes Plan discussed with: Patient, Other (RN,Silvia- Caregiver ) My Orders My Orders Orders - MICHAEL CRUZ Procedure Category Date Status Time Speech Request ST 08/08/24 Transmitted 08:31 Hydralazine Injection PHA 08/08/24 In Process (Apresoline Inject 09:15 Mechanical Soft Diet DIET 08/08/24 Transmitted Dinner Dietary Evaluation Review Comments: 1. Timely diet progression to Regular diet as tolerated; if tighter glycemic control is needed modify to CHO 75 gm/meal 2. Encourage good oral intakes >75% of meals 3. Consider oral supplements when appropriate for diet to optimize PO intake & support nutrition for wound-healing, maintaining skin integrity Expected Outcomes/Goals: Timely diet progression, adequate oral intakes. Date of Service: August 08, 2024 Billing Provider: ALEN PIERCE MD Common Visit Codes: [id number] INP/OBS CARE(HIGH) MICHAEL CRUZ August 08, 2024 18:14 ALEN PIERCE MD August 10, 2024 20:45
[2024-08-08 20:05] LABS: Anion Gap 12 (5-15); Carbon Dioxide 25 mmol/L (20-31); Chloride 107 mmol/L (98-107); Potassium 3.8 mmol/L (3.5-5.1); Sodium 144 mmol/L (136-145)
[2024-08-08 20:06] LABS: Calcium 9.6 mg/dL (8.7-10.4)
[2024-08-08 20:11] LABS: BUN/Creatinine Ratio 18.5 (10.0-20.0); Blood Urea Nitrogen 53 mg/dL (9-23); Glucose 176 mg/dL (74-106)
[2024-08-09] VITALS (10 sets, daily range): BP systolic 136–164; BP diastolic 52–76; PULSE 78–89; RESP 18–20; TEMP 97.9–98.9; O2SAT 88–96
[2024-08-09 06:45] LABS: Basophils # (auto) 0 10 ^3/uL (0-0.2); Basophils % (auto) 0.3 % (0.0-2.0); Eosinophils # (auto) 0.3 10 ^3/uL (0-0.8); Eosinophils % (auto) 3.1 % (0.0-7.0); Hematocrit 28.3 % (41.0-53.0); Hemoglobin 9.2 g/dL (13.5-17.5); Lymphocytes # (auto) 0.7 10 ^3/uL (0.4-5.4); Mean Corpuscular Hemoglobin 27.8 pg (28.0-32.0); Mean Corpuscular Hgb Conc. 32.5 g/dL (32.0-36.0); Mean Corpuscular Volume 85.4 fL (80.0-100.0); Monocytes # (auto) 0.5 10 ^3/uL (0-1.3); Monocytes % (auto) 6.4 % (0.0-12.0); Neutrophils # (auto) 6.8 10 ^3/uL (1.6-8.6); Neutrophils % (auto) 82.2 % (37.0-80.0); Nucleated Red Blood Cells % 0.1 %; Platelet Count (auto) 235 10^3/uL (140-450); Red Blood Cells 3.32 10^6/uL (4.5-5.90); White Blood Cell 8.2 10^3/uL (4.4-10.8)
[2024-08-09 06:57] LABS: Anion Gap 10 (5-15); Calcium 9.5 mg/dL (8.7-10.4); Carbon Dioxide 24 mmol/L (20-31); Sodium 144 mmol/L (136-145)
[2024-08-09 07:03] LABS: Blood Urea Nitrogen 51 mg/dL (9-23); Chloride 110 mmol/L (98-107); Glucose 118 mg/dL (74-106); Potassium 3.5 mmol/L (3.5-5.1)
[2024-08-09] MEDS: FUROSEMIDE 40 MG/4 ML VIAL IV SCH (08:09)
--- NOTE | 2024-08-09 10:45 | DVHDSRES ---
Discharge Summary Date of Admission Resident Creating Document: MICHAEL CRUZ RESIDENT Aug 07, 2024 at 02:15 Date of Discharge: August 09, 2024 Admitting Diagnosis Probable metabolic encephalopathy due to UTI versus vascular dementia Acute respiratory failure probably secondary to CHF Labs/Diagnostic Data: Laboratory Results Test 08/09/24 08:07 08/09/24 05:00 08/08/24 05:00 08/07/24 15:58 POC Glucose 142 mg/dl (70-106) White Blood Count 8.2 10^3/uL (4.4-10.8) Red Blood Count 3.32 10^6/uL (4.5-5.90) Hemoglobin 9.2 g/dL (13.5-17.5) Hematocrit 28.3 % (41.0-53.0) Mean Corpuscular Volume 85.4 fL (80.0-100.0) Mean Corpuscular Hemoglobin 27.8 pg (28.0-32.0) Mean Corpuscular Hemoglobin Concent 32.5 g/dL (32.0-36.0) Red Cell Distribution Width 16.0 % (11.8-14.3) Platelet Count 235 10^3/uL (140-450) Mean Platelet Volume 8.2 fL (6.9-10.8) Neutrophils (%) (Auto) 82.2 % (37.0-80.0) Lymphocytes (%) (Auto) 8.0 % (10.0-50.0) Monocytes (%) (Auto) 6.4 % (0.0-12.0) Eosinophils (%) (Auto) 3.1 % (0.0-7.0) Basophils (%) (Auto) 0.3 % (0.0-2.0) Neutrophils # (Auto) 6.8 10 ^3/uL (1.6-8.6) Lymphocytes # (Auto) 0.7 10 ^3/uL (0.4-5.4) Monocytes # (Auto) 0.5 10 ^3/uL (0-1.3) Eosinophils # (Auto) 0.3 10 ^3/uL (0-0.8) Basophils # (Auto) 0 10 ^3/uL (0-0.2) Nucleated Red Blood Cells 0.1 % Sodium Level 144 mmol/L (136-145) Potassium Level 3.5 mmol/L (3.5-5.1) Chloride Level 110 mmol/L (98-107) Carbon Dioxide Level 24 mmol/L (20-31) Anion Gap 10 (5-15) Blood Urea Nitrogen 51 mg/dL (9-23) Creatinine 2.55 mg/dL (0.700-1.30) Glomerular Filtration Rate Calc 24 mL/min (>90) BUN/Creatinine Ratio 20.0 (10.0-20.0) Serum Glucose 118 mg/dL (74-106) Calcium Level 9.5 mg/dL (8.7-10.4) Magnesium Level 2.7 mg/dL (1.6-2.6) Total Bilirubin 0.2 mg/dL (0.2-1.0) Aspartate Amino Transferase (AST) 10 U/L (13-40) Alanine Aminotransferase (ALT) 11 U/L (7-40) Alkaline Phosphatase 80 U/L (46-116) Total Protein 7.6 g/dL (5.7-8.2) Albumin 4.0 g/dL (3.2-4.8) Folic Acid 46.81 ng/mL (>5.38) Influenza Type A Antigen Negative (Negative) Influenza Type B Antigen Negative (Negative) SARS-CoV-2 Antigen (Rapid) Negative (NEGATIVE) Test 08/07/24 07:05 08/07/24 03:50 08/07/24 02:47 08/06/24 23:16 Urine Color Colorless (Yellow) Urine Clarity Turbid (Clear) Urine pH 6.0 (5.0-9.0) Urine Specific Marlette 1.016 (1.001-1.035) Urine Protein 2+ (Negative) Urine Ketones Negative (Negative) Urine Blood 2+ /uL (Negative) Urine Nitrite 2+ (Negative) Urine Bilirubin Negative (Negative) Urine Urobilinogen Normal mg/dL (Negative) Urine Leukocyte Esterase 3+ /uL (Negative) Urine RBC 31 /hpf (0 - 3) Urine WBC Clumps Present /hpf (None Seen) Urine Microscopic WBC 137 /HPF (0-3) Urine Squamous Epithelial Cells None seen /hpf (<5) Urine Bacteria Few /hpf (None Seen) Urine Creatinine 71.83 mg/dL (30.0-125.0) Urine Microalbumin 1593.0 mg/L (<30.0) Urine Protein/Creatinine Ratio 4.23 Urine Sodium 35 mmol/L (40-220) Urine Glucose Normal mg/dL (Normal) Urine Total Protein 304.1 mg/dL (1-14) Urine Opiates Screen Pos (NEGATIVE) Urine Fentanyl Screen Neg (NEGATIVE) Urine Barbiturates Screen Neg (NEGATIVE) Urine Phencyclidine Screen Neg (NEGATIVE) Urine Amphetamines Screen Neg (NEGATIVE) Urine Benzodiazepines Screen Neg (NEGATIVE) Urine Cocaine Screen Neg (NEGATIVE) Urine Cannabinoids Screen Neg (NEGATIVE) Hemoglobin A1c 5.7 % A1C (<5.7) Lactic Acid Level 0.9 mmol/L (0.4-2.0) Phosphorus Level 4.2 mg/dL (2.4-5.1) Vitamin B12 Level > 4000 pg/mL (211-911) Vitamin D 25-Hydroxy 42.0 ng/mL (30.0-100) Thyroid Stimulating Hormone (TSH) 0.36 uIU/mL (0.55-4.78) Blood Gas Specimen Type Arterial Blood Gas Sample Site Right radial Blood Gas Patient Temperature 37.0 Arterial Blood Date Drawn [id number] Arterial Blood pH 7.326 (7.350-7.450) Arterial Blood Partial Pressure CO2 45.7 mmHg (35.0-48.0) Arterial Blood Partial Pressure O2 55.1 mmHg (83.0-108.0) Arterial Blood HCO3 23.3 mmol/L (21.0-28.0) Arterial Blood Oxygen Saturation 87.7 % (94.0-98.0) Arterial Blood Base Excess -2.6 mmol/L (-2.0-3.0) Arterial Blood Oxyhemoglobin 87.0 % (94.0-98.0) Arterial Blood Carboxyhemoglobin 0.4 % (0.5-1.5) Arterial Blood Methemoglobin 0.4 % (0.0-1.5) Ryne Test Modified Blood Gas Total Hemoglobin 9.80 g/dL (13.5-17.5) Blood Gas Modality Room air FiO2 % 21.0 Prothrombin Time 10.8 sec (9.3-11.8) Prothrombin Time INR 1.02 (0.9-1.15) Activated Partial Thromboplast Time 32.2 SEC (24.5-34.5) Other Laboratory Tests 08/09/24 05:00 Brief Hx & Hospital Course: Cm Elder is a 83-year-old male past medical history of Hypertension, dyslipidemia, diabetes, obesity, CHF, sick sinus syndrome status post permanent pacemaker placement, PAD, nonhealing stage IV sacral decubitus ulcer last culture showed E coli ESBL, chronic right heel osteomyelitis, multiple UTIs (on 2022 E coli ESBL) has chronic indwelling Juárez, CKD, CVA currently bed-bound, normocytic anemia. Information was gathered after talking to patient's health services information specialist and POA Ms. Good, . patient who presents to the ED due to inability of hospice nurse to remove Juárez catheter associated with suprapubic pain. Patient currently in altered mental status (baseline is unknown), he [facility] care, he revoked hospice. Patient was recently discharged from [facility] on 07/20/23 treated for sepsis due to UTI, hepatic encephalopathy.. Patient had bacteremia with ESBL E. coli started on meropenem converted to Invanz right foot wound showed MRSA and the sacral decub ulcer stage IV showed ESBL. Patient was discharged with Invanz. Initial lab workup revealed anemia with a hemoglobin 9.1, serum creatinine 3.41, lactic acid 0.9, urinalysis nitrite 2+, WBC 137, bacteria few. Ultrasound-. Limited evaluation with visualization of only the right kidney which demonstrates mild renal cortical thinning. Nonvisualization of the left kidney. CXR- Suspected new small left pleural effusion. Hospital course-Cm Elder is a 83-year-old male past medical history of Hypertension, dyslipidemia, diabetes, obesity, CHF, sick sinus syndrome status post permanent pacemaker placement, PAD, nonhealing stage IV sacral decubitus ulcer last culture showed E coli ESBL, chronic right heel osteomyelitis, multiple UTIs (on 2022 E coli ESBL) has chronic indwelling Juárez, CKD, CVA currently bed-bound, normocytic anemia. Information was gathered after talking to patient's health services information specialist and POA Ms. Good, . patient who presents to the ED due to inability of hospice nurse to remove Juárez catheter associated with suprapubic pain. Patient currently in altered mental status (baseline is unknown), he comes [facility], he revoked hospice. Patient was recently discharged from [facility] on 04/11/24 treated for sepsis due to UTI, hepatic encephalopathy.. Patient had bacteremia with ESBL E. coli started on meropenem converted to Invanz right foot wound showed MRSA and the sacral decub ulcer stage IV showed ESBL. Patient was discharged with Invanz. Initial lab workup revealed anemia with a hemoglobin 9.1, serum creatinine 3.41, lactic acid 0.9, urinalysis nitrite 2+, WBC 137, bacteria few. Ultrasound-. Limited evaluation with visualization of only the right kidney which demonstrates mild renal cortical thinning. Nonvisualization of the left kidney. CXR- Suspected new small left pleural effusion. Wound culture uterine culture grew grew enterococci bacteremia Aerogenes, sensitive to Bactrim. Patient is being discharged with the home hospice with the antibiotic Bactrim 1 tab b.i.d.. Patient's meds were sent to the pharmacy electronically. Please follow up with the MD of hospice Patient was hemodynamically stable on discharge Assessment Probable metabolic encephalopathy due to UTI versus vascular dementia Acute respiratory failure probably secondary to CHF Acute on chronic diastolic congestive heart failure (HFpEF, LVEF 70%) Ruled out acute urinary retention JOHN hemodynamically mediated on CKD Probable UTI (pending UA) Sacral decubitus wound stage IV - present on admission Chronic left foot osteomyelitis Sick sinus syndrome status post permanent pacemaker PAD History of CVA Chronic normocytic anemia probably due to CKD Hypertension Dyslipidemia Diabetes Plan Bactrim 1 tab b.i.d. Resume other home medications Please avoid dehydration and nephrotoxic Operations or Procedures [place] [id number] Ph: [phone] DIAGNOSTIC IMAGING Diagnostic Imaging Report : [id number] Signed PATIENT: CM ELDER MACCT: [id number] UNIT: [id number] : 1940 LOC: ER ROOM / BED: / AGE / SEX: 83 / M ADM STATUS: REG ER SERVICE 230 ORDERING PHYSICIAN: ALICIA RANGEL MD PROCEDURE(s): CXRP - CHEST PORTABLE REASON: abdominal pain ORDER NUMBER(s): [id number], ACCESSION NUMBER(s): [id number] CHEST RADIOGRAPH Indication: abdominal pain Technique: Single frontal view of the chest was obtained COMPARISON: XY CHEST PORTABLE on DOS: 07/17/23, XY CHEST XRAY 1 VIEW on DOS: 02/05/23, XY CHEST XRAY 1 VIEW on DOS: 02/05/23, XY CHEST PORTABLE on DOS: 02/05/23, XY CHEST PORTABLE on DOS: 02/04/23 FINDINGS: Lines and Tubes: Left anterior chest wall cardiac pacing device. Lungs: Stable chronic appearing bilateral interstitial pulmonary markings. No evidence of focal consolidation. suspected new small left pleural effusion. No pneumothorax. Cardiomediastinal contours: Unremarkable Bones: Unremarkable IMPRESSION: 1. Suspected new small left pleural effusion. ATED BY: TURNER HARMON MD DICTATED DATE/TIME: 08/07/245 SIGNED BY: TURNER HARMON MD SIGNED DATE/TIME: 08/07/245 CC: [place] [id number] Ph: [phone] DIAGNOSTIC IMAGING Diagnostic Imaging Report : [id number] Signed PATIENT: CM ELDER MACCT: [id number] UNIT: [id number] : 1940 LOC: ER ROOM / BED: / AGE / SEX: 83 / M ADM STATUS: REG ER SERVICE 0 ORDERING PHYSICIAN: RYAN SEGURA RESIDENT PROCEDURE(s): KIDUS - KIDNEY REASON: JOHN vs CKD ORDER NUMBER(s): [id number], ACCESSION NUMBER(s): [id number] US KIDNEY HISTORY: JOHN vs CKD COMPARISON: US KIDNEY on DOS: 07/17/23 TECHNIQUE: Transverse and longitudinal grayscale and color Doppler images were obtained of the kidneys and bladder. FINDINGS: Right kidney measures 9.4 cm in length. Left kidney is not visualized due to patient body habitus and positioning. Right renal echotexture is preserved with thinning of the renal cortex. No hydronephrosis. Urinary bladder is incompletely distended. IMPRESSION: 1. Limited evaluation with visualization of only the right kidney which demonstrates mild renal cortical thinning. Nonvisualization of the left kidney. ATED BY: ANDRE COE MD DICTATED DATE/TIME: 08/07/24252 SIGNED BY: ANDRE COE MD SIGNED DATE/TIME: 08/07/24252 CC: Condition at Discharge: Stable Final Diagnosis/Problems List Probable metabolic encephalopathy due to UTI versus vascular dementia Acute respiratory failure probably secondary to CHF Acute on chronic diastolic congestive heart failure (HFpEF, LVEF 70%) Ruled out acute urinary retention JOHN hemodynamically mediated on CKD Probable UTI (pending UA) Sacral decubitus wound stage IV - present on admission Chronic left foot osteomyelitis Sick sinus syndrome status post permanent pacemaker PAD History of CVA Chronic normocytic anemia probably due to CKD Hypertension Dyslipidemia Diabetes Discharge Disposition: Hospice - Home Discharge Instruct/Medications Diet: Consistent carbohydrate, Cardiac 2g Na,low cholest Follow Up/Referral: Please follow up with your hospice MD Medications: Bactrim 1 tab b.i.d. Resume other home medication Discharge Statement: "Patient was advised to return to the ER or call 911 if any headaches, dizziness, shortness of breath, chest pain, abdominal pain, bleeding, fevers, or worsening of medical condition. Patient was counseled about treatment plan, medications, possible side effects, patientverbalized understanding. All questions were answered to the best of my ability. This discharge took greater then 30 minutes in planning, reviewing documentation, counseling the patient, and discussing with other team members." ASSESSMENT ASSESSMENT Assessment Date of Service: August 09, 2024 Billing Provider: ALEXANDRA GUERRERO DO Common Visit Codes: 56230-VSL/OBS DISCH DAY >30min MICHAEL CRUZ RESIDENT August 09, 2024 10:45 ALEXANDRA GUERRERO DO August 09, 2024 15:04
[2024-08-09] MEDS ORDERED: BACDST PO (10:48)
--- NOTE | 2024-08-09 15:48 | DVHPN2 ---
Progress Note Date Seen: August 09, 2024 Resident Creating Document: BUBBA LAMB Medical Necessity Reason Pt with a Central, PICC or Fol: No The following are medically ne: Juárez Catheter Subjective Review of Systems Patient is seen and examined at bedside, kidney function function is improving patient is cleared for discharge from Nephrology standpoint but we advised to follow-up with nephrology in the outpatient Patient reports: Feels better Review of Systems: HEENT:Normal, CVS:Normal, RESPIRATORY:Normal, GI:Normal, :Normal, MSK:Abnormal, NEURO:Normal Objective vital signs Vital Sign Date Time Temp Pulse Resp B/P (MAP) Pulse Ox O2 Delivery O2 Flow Rate FiO2 08/09/24 15:00 97.9 79 18 95 08/09/24 13:00 136/52 (80) 08/09/24 11:53 Nasal Cannula 2.0 08/09/24 11:53 28 Total Intake and Output 08/08/24 08/08/24 08/09/24 15:00 23:00 07:00 Intake Total 350 ml 250 ml Output Total 775 ml 550 ml Balance 350 ml -775 ml -300 ml medications Current Medications Medications Dose Ordered Sig/Sheila Route Start Time Stop Time Status Last Admin Dose Admin Docusate Sodium 100 mg BIDPRN PRN PO 08/07/24 02:15 Acetaminophen 650 mg Q6HP PRN PO 08/07/24 02:15 Ondansetron HCl 4 mg Q4HP PRN IV 08/07/24 02:15 Morphine Sulfate 2 mg Q4HPRN PRN IV 08/07/24 02:15 08/08/24 22:02 2 MG Enoxaparin Sodium 40 mg DAILY SC 08/07/24 10:00 UNV Enoxaparin Sodium 30 mg DAILY SC 08/07/24 10:00 08/09/24 08:13 30 MG Gabapentin 600 mg TID PO 08/07/24 06:00 08/08/24 21:05 600 MG Memantine 10 mg DAILY PO 08/07/24 10:00 08/09/24 08:13 10 MG Pantoprazole Sodium 40 mg DAILY PO 08/07/24 10:00 08/09/24 08:13 40 MG Sertraline HCl 200 mg DAILY PO 08/07/24 10:00 08/09/24 08:13 200 MG Pravastatin Sodium 20 mg HS PO 08/07/24 22:00 08/08/24 21:07 20 MG Aspirin 81 mg DAILY PO 08/07/24 10:00 08/09/24 08:13 81 MG Ipratropium [place] 0.5 mg Q6HWA NEB 08/07/24 06:00 08/09/24 11:51 0.5 MG Levalbuterol HCl 0.625 mg Q6HR NEB 08/07/24 06:00 08/09/24 11:51 0.625 MG Diagnostic Test (Pha) 1 strip ACHS 08/07/24 07:00 08/09/24 11:42 1 STRIP Insulin Human Regular ACHS SC 08/07/24 07:00 08/09/24 11:41 3 UNITS Dextrose 50 ml UD PRN IV 08/07/24 05:15 Hydralazine HCl 10 mg Q6HP PRN IV 08/08/24 09:15 Furosemide 40 mg DAILY IV 08/09/24 10:00 08/09/24 08:09 40 MG Acetaminophen/ Hydrocodone Bitart 1 tab Q6HP PRN PO 08/08/24 16:15 08/09/24 10:13 1 TAB Examination: GENERAL:Normal, HEENT:Normal, NECK:Normal, CVS:Normal, ABDOMEN:Normal, MSK:Abnormal, SKIN:Normal, NEURO:Normal, :Normal laboratory and microbiology Laboratory Tests 08/09/24 05:00 Test 08/09/24 05:00 Range/Units Serum Glucose 118 H 74-106 mg/dL Microbiology Date/Time Source Procedure Growth Status 08/07/24 15:00 Sacrum Gram Stain - Final Resulted 08/07/24 15:00 Wound Culture - Preliminary Enterobacter aerogenes Resulted 08/07/24 07:05 Voided Urine Urine Culture - Final Enterobacter aerogenes Complete 08/07/24 03:54 Blood Blood Culture - Preliminary NO GROWTH AFTER 48 HOURS OF INCUBATION. 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 From nephrology standpoint patient is cleared for discharge to [facility] facility where he came from. stable renal function Addendum Patient seen and examined, plan discussed with resident. Agree with above, Plan discussed with: Patient Dietary Evaluation Review Comments: 1. Timely diet progression to Regular diet as tolerated; if tighter glycemic control is needed modify to CHO 75 gm/meal 2. Encourage good oral intakes >75% of meals 3. Consider oral supplements when appropriate for diet to optimize PO intake & support nutrition for wound-healing, maintaining skin integrity Expected Outcomes/Goals: Timely diet progression, adequate oral intakes. BUBBA LAMB RESIDENT August 09, 2024 15:48 KAREN PANCHAL MD August 09, 2024 16:17
[2024-08-10] MEDS ORDERED: IRON SUCROSE COMPLEX 110 ML IV SCH (12:00)
== END 2024-08-09 15:30 | disposition hospice, inpatient (51) | DRG 189 ==
LOC: EDBD 21:41 → ER 21:41 → OVERFLOW 08-07 01:19 → EAST 08-07 18:47
PROVIDERS: ADMIT Internal Medicine; ATTEND Internal Medicine
PROC: 5A09357 Assistance with Respiratory Ventilation, Less than 24 Consecutive Hours, Continuous Positive Airway Pressure (ICD-10-PCS; principal; 2024-08-09)
DX: J96.00 Acute respiratory failure, unspecified whether with hypoxia or hypercapnia (principal); G93.41 Metabolic encephalopathy; I50.33 Acute on chronic diastolic (congestive) heart failure; L89.154 Pressure ulcer of sacral region, stage 4; N39.0 Urinary tract infection, site not specified; N17.9 Acute kidney failure, unspecified; I13.0 Hypertensive heart and chronic kidney disease with heart failure and stage 1 through stage 4 chronic kidney disease, or unspecified chronic kidney disease; M86.672 Other chronic osteomyelitis, left ankle and foot; T83.89XA Other specified complication of genitourinary prosthetic devices, implants and grafts, initial encounter; E11.69 Type 2 diabetes mellitus with other specified complication; Z51.5 Encounter for palliative care; F01.50 Vascular dementia, unspecified severity, without behavioral disturbance, psychotic disturbance, mood disturbance, and anxiety; N18.9 Chronic kidney disease, unspecified; E11.51 Type 2 diabetes mellitus with diabetic peripheral angiopathy without gangrene; D64.9 Anemia, unspecified; E78.5 Hyperlipidemia, unspecified; I49.5 Sick sinus syndrome; E11.22 Type 2 diabetes mellitus with diabetic chronic kidney disease; K21.9 Gastro-esophageal reflux disease without esophagitis; Z95.0 Presence of cardiac pacemaker; Z79.899 Other long term (current) drug therapy; Z86.73 Personal history of transient ischemic attack (TIA), and cerebral infarction without residual deficits; Y84.8 Other medical procedures as the cause of abnormal reaction of the patient, or of later complication, without mention of misadventure at the time of the procedure; Y92.89 Other specified places as the place of occurrence of the external cause
CPT/HCPCS: 36415; 36600; 71045; 76775; 80048; 80053; 80307; 81001; 82043; 82306; 82570; 82607; 82746; 82805; 82962; 83036; 83605; 83735; 84100; 84156; 84300; 84443; 85025; 85610; 85730; 87040; 87077; 87086; 87088; 87186; 87205; 87426; 87804; 92610; 93005; 94640; G0378; J1815